=== PATIENT | male | born 1955 | race Caucasian/White ===

== ENCOUNTER 2021-02-04 13:27 | Outpatient (CLI) | payer MEDICAID | END 2021-02-04 13:28 | disposition critical access hospital (66) | LOC: EMS 13:27 | DX: M25.552 Pain in left hip (principal) | CPT/HCPCS: A0425; A0427; A0999 ==

== ENCOUNTER 2021-02-04 14:03 | Inpatient (IN) | payer MEDICAID ==
[2021-02-04] MEDS ORDERED: KETOROLAC 30 MG/ML VIAL IVP STA (14:50)
[2021-02-04] MEDS ORDERED: MORPHINE 2 MG/ML CARPUJECT IVP STA (14:50)
--- NOTE | 2021-02-04 15:38 | XRAY Report ---
PROCEDURE: Hip w/Pelvis 2-3V LT INDICATIONS: L hip pain, no fall TECHNIQUE: AP pelvis with lateral view(s) of the left hip(s). COMPARISON: None. FINDINGS: Bones: There is an acute appearing fracture involving left femoral neck with superior migration of fe moral shaft in relation to femoral head and overlapping at femoral neck fracture site. Moderate bilat eral hip joint osteoarthritic changes are seen. No evidence of avascular necrosis of femoral head. Pe lvic ring appears intact. No suspicious bony lesions. Soft tissues: The visualized bowel gas pattern is normal. No suspicious soft tissue calcifications. IMPRESSION: Acute displaced left femoral neck fracture as above. Reviewed by: Kade De Luna MD on 02/04/2021 3:36 PM PDT Approved by: Kade De Luna MD on 02/04/2021 3:36 PM PDT Station ID: [id number]
--- NOTE | 2021-02-04 15:53 | XRAY Report ---
PROCEDURE: Chest 1 View X-Ray INDICATIONS: pre-op TECHNIQUE: One view of the chest was acquired. COMPARISON: Lung bases on CT abdomen and pelvis 01/04/2015. FINDINGS: Surgical changes and devices: None. Lungs and pleura: No pleural effusions or pneumothorax. No consolidation seen. Prominent and diffuse pulmonary interstitial markings bilaterally. Mediastinum: Mediastinal contours appear normal. Heart size is within normal limits. Bones and chest wall: No suspicious bony lesions. Overlying soft tissues appear unremarkable. IMPRESSION: Diffuse increased interstitial markings. This could be due to fluid overload/CHF. Interstitial lung disease or infectious/inflammatory etiology could have a similar appearance. Reviewed by: Win Almaraz MD on 02/04/2021 2:51 PM DAVION Approved by: Win Almaraz MD on 02/04/2021 2:51 PM DAVION Station ID: [id number]
[2021-02-04 15:55] LABS: BASOPHILS % (AUTO) 0.1 %; HCT - HEMATOCRIT 42.2 % (42.0-52.0); LYMPHOCYTES # (AUTO) 0.9 10^3/uL (1.5-3.5); LYMPHOCYTES % (AUTO) 4.9 %; MEAN CORPUSCULAR HEMOGLOBIN 31.1 pg (27.0-31.0); MEAN CORPUSCULAR HGB CONC 33.2 g/dL (32.0-36.0); MEAN CORPUSCULAR VOLUME 93.8 fL (80.0-94.0); MEAN PLATELET VOLUME 9.5 fL (7.4-11.4); MONOCYTES # (AUTO) 1.2 10^3/uL (0.0-1.0); MONOCYTES % (AUTO) 6.2 %; NEUTROPHILS # (AUTO) 16.6 10^3/uL (1.5-6.6); NEUTROPHILS % (AUTO) 88.1 %; PLT - PLATELET COUNT 273 10^3/uL (130-450); RED CELL DISTRIBUTION WIDTH 15.9 % (12.0-15.0); WHITE BLOOD COUNT 18.8 x10^3/uL (4.8-10.8)
[2021-02-04 16:09] LABS: ALBUMIN 3.5 g/dL (3.2-5.5); ALBUMIN/GLOBULIN RATIO 0.8 (1.0-2.2); BILIRUBIN,TOTAL 0.5 mg/dL (0.2-1.0); CALCIUM 9.1 mg/dL (8.5-10.3); CREATININE 0.8 mg/dL (0.6-1.2); POTASSIUM 4.8 mmol/L (3.5-5.0); TOTAL PROTEIN 7.8 g/dL (6.7-8.2)
--- NOTE | 2021-02-04 16:13 | ED Physician Documentation ---
PD HPI LOWER EXT INJURY - Stated complaint Stated Complaint: HIP INJ - Chief complaint Chief Complaint: Ext Problem - History obtained from History obtained from: Patient - History of Present Illness PD HPI LOW EXT INJURY LOCATION: Left, Hip Type of injury: Twist Where injury occurred: Home Timing - onset: How many hours ago (1) Timing - duration: Hours (1) Timing - details: Abrupt onset Pain level max: 10 Pain level now: 10 Improved by: Rest, Ice, Immobilization Worsened by: Moving, Palpating Associated symptoms: No: Weakness, Numbness, Tingling, Swelling Recently seen: Not recently seen - Additional information Additional information: Patient is a 65-year-old male who presents to the emergency department stating he has had left hip pain for several weeks. Today he was lifting an air compressor when he turned and felt 3 pops in his left hip. Now unable to walk. Brought in by EMS. Worse with movement, better with rest. Review of Systems Ten Systems: 10 systems reviewed and negative Constitutional: denies: Fever, Chills Respiratory: denies: Cough GI: denies: Vomiting, Diarrhea Skin: denies: Rash Musculoskeletal: denies: Neck pain, Back pain Neurologic: denies: Headache, Head injury PD PAST MEDICAL HISTORY - Past Medical History Cardiovascular: None Respiratory: Pneumonia Neuro: None Endocrine/Autoimmune: None GI: GERD, Hepatitis, Cirrhosis : Other HEENT: None Psych: Depression Musculoskeletal: Chronic back pain Derm: None - Past Surgical History Past Surgical History: Yes General: Appendectomy Ortho: Knee replacement Cardiovascular: Other - Present Medications Home Medications: Ambulatory Orders Medication Instructions Recorded Confirmed Bupropion HCl [Wellbutrin] 11/19/13 11/19/13 Oxycodone HCl 11/19/13 11/19/13 - Allergies Allergies/Adverse Reactions: Allergies Allergy/AdvReac Type Severity Reaction Status Date / Time codeine Allergy Rash Verified 01/04/15 08:59 - Social History Does the pt smoke?: No Smoking Status: Former smoker Does the pt drink ETOH?: Yes Does the pt have substance abuse?: Yes Substance Use and Type: Marijuana - Immunizations Immunizations are current?: Yes - POLST Patient has POLST: No PD ED PE NORMAL - Vitals Vital signs reviewed: Yes - General General: Alert and oriented X 3 - HEENT HEENT: Moist mucous membranes - Neck Neck: Supple, no meningeal sign - Cardiac Cardiac: RRR - Respiratory Respiratory: No respiratory distress, Clear bilaterally - Abdomen Abdomen: Soft, Non tender, Non distended - Back Back: No spinal TTP - Derm Derm: Warm and dry - Extremities Extremities: Other (TTP over the L hip, limited ROM 2/2 pain, severe pain with any motion.) - Neuro Neuro: Alert and oriented X 3 - Psych Psych: Normal mood, Normal affect Results - Vitals Vitals: Vital Signs - 24 hr 02/04/21 02/04/21 14:31 15:58 Temperature 97.6 C H Heart Rate 104 H 95 Respiratory 18 Rate Blood Pressure 132/72 H 144/97 H O2 Saturation 92 96 Oxygen O2 Source Room air - EKG (time done) 1603 Rate: Rate (enter#) (92) Rhythm: NSR [place]: Normal Intervals: Normal [place] QRS: Normal Ischemia: Normal ST segments - Labs Labs: Laboratory Tests 02/04/21 02/04/21 02/04/21 15:46 15:46 15:46 WBC 18.8 H RBC 4.50 L Hgb 14.0 Hct 42.2 MCV 93.8 MCH 31.1 H MCHC 33.2 RDW 15.9 H Plt Count 273 MPV 9.5 Neut # (Auto) 16.6 H Lymph # (Auto) 0.9 L [place] # (Auto) 1.2 H Eos # (Auto) 0.0 Baso # (Auto) 0.0 Absolute Nucleated RBC 0.00 Nucleated RBC % 0.0 Sodium 140 Potassium 4.8 Chloride 107 Carbon Dioxide 25 Anion Gap 8.0 BUN 25 H Creatinine 0.8 Estimated GFR (MDRD) 98 Glucose 115 H Calcium 9.1 Total Bilirubin 0.5 AST 23 ALT 24 Alkaline Phosphatase 70 Total Protein 7.8 Albumin 3.5 Globulin 4.3 H Albumin/Globulin Ratio 0.8 L Lipase 20 L Nasal Adenovirus (PCR) Nasal B. parapertussis DNA (PCR) Nasal Coronavir 229E PCR Nasal Coronavir HKU1 PCR Nasal Coronavir NL63 PCR Nasal Coronavir OC43 PCR Nasal Enterovir/Rhinovir PCR Nasal Influenza B PCR Nasal Influenza A PCR Nasal Parainfluen 1 PCR Nasal Parainfluen 2 PCR Nasal Parainfluen 3 PCR Nasal Parainfluen 4 PCR Nasal RSV (PCR) Nasal B.pertussis DNA PCR Nasal C.pneumoniae (PCR) [place] Human Metapneumo PCR Nasal M.pneumoniae (PCR) Nasal SARS-CoV-2 (PCR) Blood Type B POSITIVE Antibody Screen NEGATIVE 02/04/21 16:20 WBC RBC Hgb Hct MCV MCH MCHC RDW Plt Count MPV Neut # (Auto) Lymph # (Auto) [place] # (Auto) Eos # (Auto) Baso # (Auto) Absolute Nucleated RBC Nucleated RBC % Sodium Potassium Chloride Carbon Dioxide Anion Gap BUN Creatinine Estimated GFR (MDRD) Glucose Calcium Total Bilirubin AST ALT Alkaline Phosphatase Total Protein Albumin Globulin Albumin/Globulin Ratio Lipase Nasal Adenovirus (PCR) NOT DETECTED Nasal B. parapertussis DNA (PCR) NOT DETECTED Nasal Coronavir 229E PCR NOT DETECTED Nasal Coronavir HKU1 PCR NOT DETECTED Nasal Coronavir NL63 PCR NOT DETECTED Nasal Coronavir OC43 PCR NOT DETECTED Nasal Enterovir/Rhinovir PCR NOT DETECTED Nasal Influenza B PCR NOT DETECTED Nasal Influenza A PCR NOT DETECTED Nasal Parainfluen 1 PCR NOT DETECTED Nasal Parainfluen 2 PCR NOT DETECTED Nasal Parainfluen 3 PCR NOT DETECTED Nasal Parainfluen 4 PCR NOT DETECTED Nasal RSV (PCR) NOT DETECTED Nasal B.pertussis DNA PCR NOT DETECTED Nasal C.pneumoniae (PCR) NOT DETECTED Juan Diego Human Metapneumo PCR NOT DETECTED Nasal M.pneumoniae (PCR) NOT DETECTED Nasal SARS-CoV-2 (PCR) NOT DETECTED Blood Type Antibody Screen - Rads (name of study) L hip xray Radiology: Final report received, EMP read contemporaneously, See rad report (Acute displaced left femoral neck fracture as above. ) cxr Radiology: Final report received, EMP read contemporaneously, See rad report PD MEDICAL DECISION MAKING - ED course Complexity details: reviewed results, re-evaluated patient, considered differential, d/w patient, d/w presales consultant ED course: 65-year-old male with a left femoral neck fracture. Pain well controlled. Neurovascularly intact. Discussed with Dr. Rogers, orthopedics who will have the hospitalist admit and plan on taken to the OR tomorrow. This document was made in part using voice recognition software. While efforts are made to proofread this document, sound alike and grammatical errors may occur. IMPRESSION: Diffuse increased interstitial markings. This could be due to fluid overload/CHF. Interstitial lung disease or infectious/inflammatory etiology could have a similar appearance. Departure - Departure Disposition: 68 [facility] DC/Xfer Clinical Impression: Hip fracture Qualifiers: Encounter type: initial encounter Fracture type: closed Laterality: left Qualified Code(s): S72.002A - Fracture of unspecified part of neck of left femur, initial encounter for closed fracture Condition: Stable Discharge Date/Time: 02/04/21 17:37
[2021-02-04] MEDS ORDERED: HYDROmorphone 1 MG/ML CARPUJECT IVP STA (16:15)
[2021-02-04] MEDS ORDERED: ONDANSETRON ODT 4 MG TABLET TL PRN (16:28)
[2021-02-04] MEDS ORDERED: ONDANSETRON 4 MG/2 ML VIAL IVP PRN (16:28)
[2021-02-04] MEDS ORDERED: SODIUM CHLORIDE 0.9% 1,000 ML IV SCH (17:00)
--- NOTE | 2021-02-04 17:11 | HISTORY & PHYSICAL EXAMINATION ---
Chief Complaint - Chief Complaint Chief Complaint: abrupt L hip pain History of Present Illness - Admitted From Admitted From:: work site - History Obtained From Records Reviewed: [facility] History obtained from: patient, Dr. Rogers, [facility] Exam Limitations: none - History of Present Illness HPI Comment/Other: 2 weeks ago he was seen at his walk-in clinic for left hip pain. X-ray was [place] piece of equipment/compressor. he had sudden onset of left hip pain. In the same area where he hurt 2 weeks ago. Pain was pretty abrupt and very severe. BIB EMS. In the emergency room he was 97.6. Heart rate of 104. Blood pressure 132/72. Respirations 18 and 92% on room air. As long as he kept his leg stable and he did not stand on it or move he felt fine. Other than not being able to move his leg, not much else was seen on physical exam. His white cell count is 18.8. Hemoglobin 14. BMP normal. And hip film shows a fracture of the left femur. He has a PMH of COPD and occasionally has short bursts of steroids for his exacerbation. The last time he had an exacerbation was yesterday. Over the last couple of days he has had increasing shortness of breath and wheezing. Not unusual for him. But he could not get the wheezing into control with his inhaler so he went to [facility] emergency room. He received nebulizers, a short burst of steroids, and he was sent home. Also has a history of alcohol abuse in the past. He drinks about 4-5 drinks of wine a day. Last drink was this morning. He does not recall ever going through full withdrawal. He may get a little shaky for a couple of hours but that is the worst he is ever had. He also uses methamphetamines. Last use was a few days ago. In speaking to his primary care provider, Dr. Means, he was last seen in April 2020. Medications at that time was Symbicort, ProAir, fluoxetine, bupropion and Viagra. But he tells me that he saw Dr. Means to get a skin lesion taken off his back in the last few months. He has chronic shortness of breath. That is the main thing that slows him down. No recent change in phlegm production. No hemoptysis, no fever or chills. Did have an exacerbation of wheezing yesterday as already noted. He denies chest pain, palpitations. Denies pedal edema. Orthopnea. He denies any history of heart attack, valvular heart disease or arrhythmia. Denies any problems with his kidneys. History - Past Medical History Cardiovascular: reports: None Respiratory: reports: COPD, Pneumonia Neuro: reports: None Endocrine/Autoimmune: reports: None GI: reports: GERD, Hepatitis, Cirrhosis : reports: Benign prostate hypertrophy HEENT: reports: Chronic vision loss, Chronic hearing loss Psych: reports: Depression, Anxiety Musculoskeletal: reports: Chronic back pain Derm: reports: Other (A mole removed from his back this last summer) MRSA Hx?: No Other Past Medical History: alcoholism - Past Surgical History General: reports: Appendectomy Ortho: reports: Knee replacement Cardiovascular: reports: Other - Family & Social History Family History Comment/Other: Dad around age 61 of alcohol abuse. Mom around age 80 and was felt to be healthy. 6 siblings. 1 sibling has a problem with alcohol abuse but the rest are healthy. He does not recall if they have high blood pressure, diabetes, cancer, heart attack. 2 children. His oldest son has schizophrenia and is in his 40s. His youngest son is 27 and completely healthy and is a vegan. Living arrangement: At home Living Situation: With spouse/s.o. Social History Notes: He has been 3 times. Originally from [place] and came out to the [facility] when he was having problems with alcoholism and methamphetamines. He became clean and sober. In the last few years he has been having some "struggles" and is gone back to drinking about 4 to 5 glasses of wine a day. Uses methamphetamine sporadically. Also uses occasional cannabis. Denies heroin, LSD, cocaine. 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 Last work was 2 weeks ago. He and his live in [place]. Started cigs age 12. 1 ppd until age 62. - Substance History Use: Uses substance without health or social issues: NONE - POLST Patient has POLST: No Meds/Allgy - Home Medications Home Medications: Ambulatory Orders Medication Instructions Recorded Confirmed Bupropion HCl [Wellbutrin] 11/19/13 11/19/13 Oxycodone HCl 11/19/13 11/19/13 - Allergies Allergies/Adverse Reactions: Allergies Allergy/AdvReac Type Severity Reaction Status Date / Time codeine Allergy Rash Verified 01/04/15 08:59 Review of Systems - Constitutional Constitutional: denies: Fatigue, Fever, Chills, Malaise, Poor appetite, Diaphoresis, Night sweats - Eyes Eyes: reports: Vision loss. denies: Amaurosis, Blurred vision - Ears, Nose & Throat Ears, Nose & Throat: reports: Hearing loss, Hoarseness. denies: Ear pain, Hearing aids, Tinnitus, Vertigo, Sore throat - Cardiovascular Cariovascular: reports: Exertional dyspnea, Decr. exercise tolerance. denies: Irregular heart rate, Palpitations, Chest pain, Edema - Respiratory Respiratory: reports: Cough (Daily and unchanged.), Sputum production (Daily of clear to white phlegm. Unchanged.), Wheezing (Off and on depending on weather and smoke inhalation) - Gastrointestinal Gastrointestinal: denies: Abdominal pain, Abdominal distention, Constipation, Diarrhea, Change in bowel habits, Rectal bleeding, Black stools, Bloody stools, Reflux/heartburn, Poor appetite - Genitourinary Genitourinary: reports: Frequency, Urgency, Nocturia (3x night), Sexual dysfunc tion, Other (decreased stream). denies: Dysuria - Musculoskeletal Musculoskeletal: reports: Back pain, Stiffness - Integumentary Integumentary: denies: Rash, Pruritis, Lesions, Dryness, Lumps - Neurological Neurological: denies: General weakness, Focal weakness, Headache, Dizziness, Memory problems, Pre-existing deficit, Abnormal gait, Seizures, Incoordination, Slurred speech - Psychiatric Psychiatric: reports: Depression, Anxiety. denies: Suicidal, Delusions, Hallucinations - Endocrine Endocrine: denies: Polyuria, Polydypsia, Polyphagia - Hematologic/Lymphatic Hematologic/Lymphatic: denies: Anemia, Bruising, Petechiae, Blood clots Prior Level of Functionality: Independent with regards to driving, dressing, doing chores, cooking and taking a bath. If he is limited he is limited by musculoskeletal back pain but he is still working full-time Exam - Vital Signs Reviewed Vital Signs: Yes Vital Signs: Vital Signs x48h Temp Pulse Resp BP Pulse Ox 02/04/21 15:58 95 144/97 H 96 02/04/21 14:31 97.6 C H 104 H 18 132/72 H 92 - Physical Exam General Appearance: positive: No acute distress, Alert, Other (The only time he screams in pain is when he is moved in the bed and his left hip moves. It is agonizing.) Eyes Bilateral: positive: PERRL, EOMI ENT: positive: No signs of dehydration, Other (Voice is hoarse) Neck: positive: No JVD, Lymphadenopathy (R) (Shotty), Lymphadenopathy (L) (Shotty). negative: Stiff neck, Carotid bruit Respiratory: positive: No respiratory distress, Rhonchi (Clear with a deep cough). negative: Wheezes (But he has prolonged and exhalation phase with breathing), Rales Cardiovascular: positive: Regular rate & rhythm. negative: Systolic murmur, Gallop/S4, Friction rub Abdomen: positive: Non-tender, No organomegaly, Nml bowel sounds, No distention Skin: positive: Warm, Dry Extremities: positive: No pedal edema, Other (Agonizing the painful if moved. Right now he prefers to lay on his back, hip flexed and knee flexed on that leg.) Neurologic/Psychiatric: positive: Oriented x3, CN's nml (2-12), Motor nml, Sensation nml Conclusion/Plan - Problem List (1) Left displaced femoral neck fracture Conclusion/Plan: My suspicion is that has aseptic necrosis of the hip. Intermittent steroid use in the past, alcohol abuse in the past. He may have developed a small crack that was felt 2 weeks ago but not seen on film. Today with a sudden heavy lifting, his hip gave way and spontaneous fracture occurred. There was no history of trauma or fall. Plan: Inpatient admission Orthopedic consultation for surgical repair N.p.o. after midnight Type and screen Morphine for pain DVT prophylaxis to start the evening of postop day 0 with Lovenox I anticipate that he may actually be able to go home she is a relatively active and healthy gentleman except for his lungs. We will assess him on postop day #3. If he does have to go to a detention facility, he would prefer to go to in [place] so that he can be near his . (2) Aseptic bony necrosis Conclusion/Plan: My partner. In the outpatient setting he may need a DEXA scan and treated appropriately for osteopenia/osteoporosis. (3) COPD without exacerbation Conclusion/Plan: Currently not in exacerbation. He has been on Symbicort and ProAir in the past. Currently not on his medication list. Plan: DuoNeb as needed (4) Depression with anxiety Conclusion/Plan: In the past he has been on fluoxetine and bupropion. Most recently on bupropion. That will be resumed while he is here. (5) Abnormal chest x-ray Conclusion/Plan: He denies any cough, fever, chills, myalgias. Does not have a history of congestive heart failure. Does not have a history of inhalation injury.He was just seen yesterday in the [facility] emergency room. Plan: Check PCR for COVID-19 Check echocardiogram For completeness sake. However the echocardiogram should not delay his surgery. (6) Preop cardiovascular exam Conclusion/Plan: He has no valvular heart disease, denies angina, HI, arrhythmia. His main problem with surgery will be the anesthetic and his COPD. With the surgical risk calculator he has a 9.5% risk of serious complication, 0.4% risk of cardiac complication. For the most part he is below average risk patient. (7) BPH loc w urin obs/LUTS Conclusion/Plan: Start Flomax tonight. Watch him carefully in the postoperative setting to make sure he does not have urinary retention once the Valadez is pulled. (8) Substance abuse Conclusion/Plan: Gentleman has intermittent substance abuse of alcohol and methamphetamines. Right now very minimally tremulous. No diaphoresis no tachycardia no hypertension. Plan: [facility] protocol Banana bag - Lab Results Lab results reviewed: Yes Fish Bones: 02/05/21 06:22 02/05/21 06:22 - Diagnostic Imaging Results Diagnostic Imaging Results: positive: Final report reviewed Diagnostic Imaging Results Comments: Acute displaced left femoral neck fracture Chest x-ray with diffuse increased interstitial markings. Unclear whether this is infectious or inflammatory or CHF. - EKG Results EKG Interpreted Independently: No Core Measures - Anticipated LOS I expect patient to be DC'd or transferred within 96 hours.: Yes - DVT/VTE - Prophylaxis VTE/DVT Device ordered at admit?: Yes
[2021-02-04 17:20] LABS: B. PARAPERTUSSIS- RESP PCR PAN NOT DETECTED; B. PERTUSSIS- RESP PCR PANEL NOT DETECTED; C. PNEUMONIAE- RESP PCR PANEL NOT DETECTED; CORONAVIRUS 229E-RESP PCR NOT DETECTED; CORONAVIRUS HKU1-RESP PCR NOT DETECTED; CORONAVIRUS NL63-RESP PCR NOT DETECTED; CORONAVIRUS OC43-RESP PCR NOT DETECTED; HUMAN METAPNEUMOVIRUS NOT DETECTED; INFLUENZA A- RESP PCR PANEL NOT DETECTED; INFLUENZA B - RESP PCR PANEL NOT DETECTED; M. PNEUMONIAE- RESP PCR PANEL NOT DETECTED; PARAINFLUENZA VIRUS 1 NOT DETECTED; PARAINFLUENZA VIRUS 2 NOT DETECTED; PARAINFLUENZA VIRUS 3 NOT DETECTED; PARAINFLUENZA VIRUS 4 NOT DETECTED; RHINOVIRUS/ENTEROVIRUS NOT DETECTED; RSV- RESP PCR PANEL NOT DETECTED; SARS-CoV-2 -RESP PCR PANEL NOT DETECTED
--- NOTE | 2021-02-04 17:20 | CONSULTATION NOTE ---
Referring Provider Name of Referring Provider:: Dr. Tunde Dejesus Consult Date: 02/04/21 History of Present Illness - Admitted From Admitted From:: Pain left hip - History Obtained From Records Reviewed: Yes History obtained from: Patient Exam Limitations: None - History of Present Illness HPI Comment/Other: This is a relatively healthy 65-year-old gentleman who has a history of pain to the left hip developing about 3 weeks ago. The pain was to the left hip and groin region and was associated with weightbearing. He was seen by his primary care physician, x-ray was obtained of the left hip. He states that he was reassured and states that he had some arthritis but not to worry. His pain has persisted with weightbearing, walking with a limp off and on. He used to live here on [facility], now resides in [place] 5 gallon air compressor and felt a pop. Marked pain to his left hip and marked difficulty bearing any weight, came to the emergency room, evaluated and I was asked to see the patient following evaluation by emergency room physician. He is normally a good ambulator. 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 He denies chest pain, shortness of breath, syncope associated with pain. He does have a history of chronic obstructive pulmonary disease. He quit smoking 3 years ago. He started a prednisone taper recently. He takes prednisone perhaps 3-4 times a year for his COPD. He does have a history of hepatitis C in the past, apparently treated and is now negative. He denies history of musculoskeletal issues in the past. He currently has rather marked pain in any attempted movement of the left hip is associated with pain. History - Past Medical History Cardiovascular: reports: None Respiratory: reports: Pneumonia Neuro: reports: None Endocrine/Autoimmune: reports: None GI: reports: GERD, Hepatitis, Cirrhosis : reports: Other HEENT: reports: None Psych: reports: Depression Musculoskeletal: reports: Chronic back pain Derm: reports: None MRSA Hx?: No - Past Surgical History General: reports: Appendectomy Ortho: reports: Knee replacement Cardiovascular: reports: Other - POLST Patient has POLST: No Meds/Allgy - Home Medications Home Medications: Ambulatory Orders Medication Instructions Recorded Confirmed Bupropion HCl [Wellbutrin] 11/19/13 11/19/13 Oxycodone HCl 11/19/13 11/19/13 - Allergies Allergies/Adverse Reactions: Allergies Allergy/AdvReac Type Severity Reaction Status Date / Time codeine Allergy Rash Verified 01/04/15 08:59 Exam - Vital Signs Vital Signs: Vital Signs x48h Temp Pulse Resp BP Pulse Ox 02/04/21 15:58 95 144/97 H 96 02/04/21 14:31 97.6 C H 104 H 18 132/72 H 92 - Physical Exam General Appearance: positive: Mild distress Neck: positive: Nml inspection Respiratory: positive: Chest non-tender, No respiratory distress Cardiovascular: positive: Regular rate & rhythm Peripheral Pulses: positive: 2+ Abdomen: positive: Non-tender Skin: positive: Color nml, Warm, Dry Extremities: negative: Other (Marked pain with any attempted movement of left hip. Patient holds hip in position of flexion. There is shortening and external rotation deformity. Neurovascular is intact left leg) Neurologic/Psychiatric: positive: Oriented x3, Motor nml, Sensation nml, Mood/affect nml Conclusion and Plan - Lab Results Laboratory Results 02/04/21 15:46: Sodium 140, Potassium 4.8, Chloride 107, Carbon Dioxide 25, Anion Gap 8.0, BUN 25 H, Creatinine 0.8, Estimated GFR (MDRD) 98, Glucose 115 H, Calcium 9.1, Total Bilirubin 0.5, AST 23, ALT 24, Alkaline Phosphatase 70, Total Protein 7.8, Albumin 3.5, Globulin 4.3 H, Albumin/Globulin Ratio 0.8 L, Lipase 20 L 02/04/21 15:46: WBC 18.8 H, RBC 4.50 L, Hgb 14.0, Hct 42.2, MCV 93.8, MCH 31.1 H, MCHC 33.2, RDW 15.9 H, Plt Count 273, MPV 9.5, Neut # (Auto) 16.6 H, Lymph # (Auto) 0.9 L, [place] # (Auto) 1.2 H, Eos # (Auto) 0.0, Baso # (Auto) 0.0, Absolute Nucleated RBC 0.00, Nucleated RBC % 0.0 02/04/21 15:46: Blood Type B POSITIVE, Antibody Screen NEGATIVE - Diagnostic Imaging Results Diagnostic Imaging Results: negative: Read independently (Displaced femoral neck fracture left hip) - Diagnosis Diagnosis: Displaced femoral neck fracture left hip - Plan Plan: I have discussed the risk, goals and likelihood achieving goals, alternatives to surgery and their consequences, disability, ,. The plan would be a left total hip arthroplasty as he is relatively high functioning individual and not the typical geriatric fracture. There are slightly more risk with the total hip arthroplasty than hemiarthroplasty but I think the risks are worth the potential improvement in outcome with a left total hip arthroplasty. The specific risks includes problem with wound healing, bleeding, infection, neurologic or vascular injury, periprosthetic fracture and hip dislocation. General risks include adverse reaction with medication or anesthesia, myocardial infarction, stroke, pulmonary embolus, respiratory arrest. He is in agreement to surgery which would most likely occur tomorrow. He will be evaluated by our hospitalist, Dr. Terry. Patient has signed informed consent.
[2021-02-04] MEDS: SODIUM CHLORIDE FLUSH 0.9% 10 ML SYRINGE IVP SCH (18:28)
[2021-02-04] MEDS: MORPHINE 2 MG/ML CARPUJECT IVP PRN ×3 (18:37→22:55)
[2021-02-04] MEDS ORDERED: LORazepam 1 MG TABLET PO PRN (18:50)
[2021-02-04 19:48] LABS: PT - PROTHROMBIN TIME 11.3 secs (9.9-12.6)
[2021-02-04] MEDS ORDERED: THIAMINE 100 MG/1 ML 2 ML MDV ONE (20:25)
[2021-02-04] MEDS ORDERED: MAGNESIUM SULFATE 1 GM/2 ML VIAL ONE ×2 (20:25→20:40)
[2021-02-04] MEDS ORDERED: FOLIC ACID 5 MG/1 ML 10ML MDV ONE (20:40)
[2021-02-04] MEDS: MULTIVITAMIN 10 ML, FOLIC ACID INJ 1 MG, THIAMINE INJ 100 MG, MAGNESIUM SULFATE 2 GM in... IV SCH ×5 (21:10)
[2021-02-04 21:49] LABS: MUDS CUTOFF CONCENTRATIONS CUTOFF CONC BELOW:
[2021-02-04] MEDS: oxyCODONE 5 MG TABLET PO PRN (21:49)
[2021-02-04 22:06] LABS: COCAINE SCREEN URINE NEGATIVE (NEGATIVE); THC CANNABINOID SCREEN, URINE POSITIVE (NEGATIVE)
[2021-02-04 22:07] LABS: AMPHETAMINE SCREEN,URINE POSITIVE (NEGATIVE); BARBITURATE SCREEN,UR NEGATIVE (NEGATIVE); BENZODIAZEPINES SCREEN, URINE NEGATIVE (NEGATIVE); METHADONE SCREEN, URINE NEGATIVE (NEGATIVE); METHAMPHETAMINES SCREEN, URINE POSITIVE (NEGATIVE); OPIATE SCREEN, URINE POSITIVE (NEGATIVE); OXYCODONE SCREEN, URINE NEGATIVE (NEGATIVE); PROPOXYPHENE SCREEN, URINE NEGATIVE (NEGATIVE); TRICYCLIC ANTIDEPRESSANT,URINE NEGATIVE (NEGATIVE)
[2021-02-05] MEDS: MORPHINE 2 MG/ML CARPUJECT IVP PRN ×4 (01:20→11:24)
[2021-02-05] MEDS: SODIUM CHLORIDE FLUSH 0.9% 10 ML SYRINGE IVP PRN ×2 (01:29→05:40)
[2021-02-05] MEDS: SODIUM CHLORIDE FLUSH 0.9% 10 ML SYRINGE IVP SCH ×4 (01:29→17:50)
[2021-02-05] MEDS: oxyCODONE 5 MG TABLET PO PRN ×2 (01:36→05:56)
[2021-02-05 06:29] LABS: BASOPHILS % (AUTO) 0.2 %; EOSINOPHILS % (AUTO) 0.1 %; HCT - HEMATOCRIT 44.7 % (42.0-52.0); HGB - HEMOGLOBIN 14.4 g/dL (14.0-18.0); LYMPHOCYTES # (AUTO) 2.3 10^3/uL (1.5-3.5); LYMPHOCYTES % (AUTO) 17.5 %; MEAN CORPUSCULAR HEMOGLOBIN 31.2 pg (27.0-31.0); MEAN CORPUSCULAR HGB CONC 32.2 g/dL (32.0-36.0); MEAN PLATELET VOLUME 9.9 fL (7.4-11.4); MONOCYTES % (AUTO) 7.4 %; NEUTROPHILS # (AUTO) 9.7 10^3/uL (1.5-6.6); NEUTROPHILS % (AUTO) 74.2 %; PLT - PLATELET COUNT 229 10^3/uL (130-450); RED BLOOD COUNT 4.61 10^6/uL (4.70-6.10); WHITE BLOOD COUNT 13.1 x10^3/uL (4.8-10.8)
[2021-02-05 06:43] LABS: CALCIUM 8.6 mg/dL (8.5-10.3); CREATININE 0.7 mg/dL (0.6-1.2); POTASSIUM 4.2 mmol/L (3.5-5.0)
[2021-02-05] MEDS ORDERED: diazePAM INJ 5 MG/ML SYRINGE IVP ONE (07:23)
--- NOTE | 2021-02-05 07:29 | PROVIDER PROGRESS NOTE ---
Subjective - Prog Note Date Prog Note Date: 02/05/21 Prog Note Time: 07:27 - Subjective Subjective: terrbiel leg pain this am. was controlled w MS last night but this am, involuntary spasm. no new problems. Cough and sob stable for him. Shrugs and says they are the same as always. Current Medications - Current Medications Current Medications: Active Medications Enoxaparin Sodium (Enoxaparin 40 Mg/0.4 Ml Syringe) 40 mg SUBQ DAILY [facility] Multivitamins 10 ml/ Folic Acid 1 mg/ Thiamine HCl 100 mg / Magnesium Sulfate 2 gm/Sodium Chloride 1,015.2 mls @ 100 mls/hr IV DAILY [facility] Last Admin: 02/04/21 21:10 Dose: 100 mls/hr Documented by: Lorazepam (Lorazepam 1 Mg Tablet) 1 mg PO Q1H PRN; Protocol PRN Reason: CIWA > 8 Last Admin: 02/05/21 06:36 Dose: 1 mg Documented by: Morphine Sulfate (Morphine 2 Mg/Ml Carpuject) 2 mg IVP Q2HR PRN PRN Reason: Pain 8 to 10 Last Admin: 02/05/21 05:40 Dose: 2 mg Documented by: Ondansetron HCl (Ondansetron Odt 4 Mg Tablet) 4 mg TL Q6HR PRN PRN Reason: Nausea / Vomiting Ondansetron HCl (Ondansetron 4 Mg/2 Ml Vial) 4 mg IVP Q6HR PRN PRN Reason: Nausea / Vomiting Oxycodone HCl (Oxycodone 5 Mg Tablet) 5 mg PO Q4HR PRN PRN Reason: Pain 5 to 7 Last Admin: 02/05/21 05:56 Dose: 5 mg Documented by: Sodium Chloride (Sodium Chloride Flush 0.9% 10 Ml Syringe) 10 ml IVP PRN PRN PRN Reason: NEEDED PER PROVIDER ORDERS Last Admin: 02/05/21 05:40 Dose: 10 ml Documented by: Sodium Chloride (Sodium Chloride Flush 0.9% 10 Ml Syringe) 10 ml IVP 0100,0900,1700 [facility] Last Admin: 02/05/21 01:29 Dose: 10 ml Documented by: Tamsulosin HCl (Tamsulosin 0.4 Mg Capsule) 0.4 mg PO DAILY [facility] Bupropion HCl [Wellbutrin] 06/30/14 Oxycodone HCl 11/19/13 Objective - Vital Signs/Intake & Output Reviewed Vital Signs: Yes Vital Signs: Vital Signs x48h Temp Pulse Resp BP Pulse Ox 02/05/21 00:46 36.5 C 89 18 148/92 H 94 Intake & Output: Intake & Output 02/02/21 02/03/21 02/04/21 02/05/21 23:59 23:59 23:59 23:59 Intake Total 370 Output Total 300 Balance 370 -300 - Objective General Appearance: positive: Alert, Severe distress (from the leg pain) Eyes Bilateral: positive: PERRL ENT: positive: No signs of dehydration Neck: positive: No JVD. negative: Stiff neck Respiratory: positive: No respiratory distress, Other (coughs once and nonproductive). negative: Wheezes (but does have prolonged end exhalation.) Cardiovascular: positive: Regular rate & rhythm, Systolic murmur. negative: Gallop/S4, Friction rub Abdomen: positive: Non-tender, No organomegaly, Nml bowel sounds, No distention Skin: positive: Warm, Dry Extremities: positive: No pedal edema. negative: Full ROM (of that left leg. can't move it without terrible pain in the hip and thigh) Neurologic/Psychiatric: positive: Oriented x3, CN's nml (2-12), Motor nml (fine tremor of hands) - Lab Results Fish Bones: 02/05/21 06:22 02/05/21 06:22 Other Labs: Lab Results x24hrs 02/05/21 02/05/21 02/04/21 Range/Units 06:22 06:22 21:47 WBC 13.1 H (4.8-10.8) x10^3/uL RBC 4.61 L (4.70-6.10) 10^6/uL Hgb 14.4 (14.0-18.0) g/dL Hct 44.7 (42.0-52.0) % MCV 97.0 H (80.0-94.0) fL MCH 31.2 H (27.0-31.0) pg MCHC 32.2 (32.0-36.0) g/dL RDW 16.0 H (12.0-15.0) % Plt Count 229 (130-450) 10^3/uL MPV 9.9 (7.4-11.4) fL Neut # (Auto) 9.7 H (1.5-6.6) 10^3/uL Lymph # (Auto) 2.3 (1.5-3.5) 10^3/uL [place] # (Auto) 1.0 (0.0-1.0) 10^3/uL Eos # (Auto) 0.0 (0.0-0.7) 10^3/uL Baso # (Auto) 0.0 (0.0-0.1) 10^3/uL Absolute Nucleated RBC 0.00 x10^3/uL Nucleated RBC % 0.0 /100WBC PT (9.9-12.6) secs INR (0.8-1.2) Sodium 138 (135-145) mmol/L Potassium 4.2 (3.5-5.0) mmol/L Chloride 104 (101-111) mmol/L Carbon Dioxide 26 (21-32) mmol/L Anion Gap 8.0 (6-13) BUN 25 H (6-20) mg/dL Creatinine 0.7 (0.6-1.2) mg/dL Estimated GFR (MDRD) 114 (>89) Glucose 88 (70-100) mg/dL Calcium 8.6 (8.5-10.3) mg/dL Total Bilirubin (0.2-1.0) mg/dL AST (10-42) IU/L ALT (10-60) IU/L Alkaline Phosphatase (42-121) IU/L Total Protein (6.7-8.2) g/dL Albumin (3.2-5.5) g/dL Globulin (2.1-4.2) g/dL Albumin/Globulin Ratio (1.0-2.2) Lipase (22-51) U/L Nasal Adenovirus (PCR) Nasal B. parapertussis DNA (PCR) Nasal Coronavir 229E PCR Nasal Coronavir HKU1 PCR Nasal Coronavir NL63 PCR Nasal Coronavir OC43 PCR Nasal Enterovir/Rhinovir PCR Nasal Influenza B PCR Nasal Influenza A PCR Nasal Parainfluen 1 PCR Nasal Parainfluen 2 PCR Nasal Parainfluen 3 PCR Nasal Parainfluen 4 PCR Nasal RSV (PCR) Nasal B.pertussis DNA PCR Nasal C.pneumoniae (PCR) [place] Human Metapneumo PCR Nasal M.pneumoniae (PCR) Nasal SARS-CoV-2 (PCR) Urine Opiates Screen POSITIVE H (NEGATIVE) Ur Oxycodone Screen NEGATIVE (NEGATIVE) Urine Methadone Screen NEGATIVE (NEGATIVE) Ur Propoxyphene Screen NEGATIVE (NEGATIVE) Ur Barbiturates Screen NEGATIVE (NEGATIVE) Ur Tricyclics Screen NEGATIVE (NEGATIVE) Ur Phencyclidine Scrn NEGATIVE (NEGATIVE) Ur Amphetamine Screen POSITIVE H (NEGATIVE) U Methamphetamines Scrn POSITIVE H (NEGATIVE) U Benzodiazepines Scrn NEGATIVE (NEGATIVE) Urine Cocaine Screen NEGATIVE (NEGATIVE) U Cannabinoids Screen POSITIVE H (NEGATIVE) Blood Type Antibody Screen 02/04/21 02/04/21 02/04/21 Range/Units 19:35 16:20 15:46 WBC (4.8-10.8) x10^3/uL RBC (4.70-6.10) 10^6/uL Hgb (14.0-18.0) g/dL Hct (42.0-52.0) % MCV (80.0-94.0) fL MCH (27.0-31.0) pg MCHC (32.0-36.0) g/dL RDW (12.0-15.0) % Plt Count (130-450) 10^3/uL MPV (7.4-11.4) fL Neut # (Auto) (1.5-6.6) 10^3/uL Lymph # (Auto) (1.5-3.5) 10^3/uL [place] # (Auto) (0.0-1.0) 10^3/uL Eos # (Auto) (0.0-0.7) 10^3/uL Baso # (Auto) (0.0-0.1) 10^3/uL Absolute Nucleated RBC x10^3/uL Nucleated RBC % /100WBC PT 11.3 (9.9-12.6) secs INR 1.0 (0.8-1.2) Sodium 140 (135-145) mmol/L Potassium 4.8 (3.5-5.0) mmol/L Chloride 107 (101-111) mmol/L Carbon Dioxide 25 (21-32) mmol/L Anion Gap 8.0 (6-13) BUN 25 H (6-20) mg/dL Creatinine 0.8 (0.6-1.2) mg/dL Estimated GFR (MDRD) 98 (>89) Glucose 115 H (70-100) mg/dL Calcium 9.1 (8.5-10.3) mg/dL Total Bilirubin 0.5 (0.2-1.0) mg/dL AST 23 (10-42) IU/L ALT 24 (10-60) IU/L Alkaline Phosphatase 70 (42-121) IU/L Total Protein 7.8 (6.7-8.2) g/dL Albumin 3.5 (3.2-5.5) g/dL Globulin 4.3 H (2.1-4.2) g/dL Albumin/Globulin Ratio 0.8 L (1.0-2.2) Lipase 20 L (22-51) U/L Nasal Adenovirus (PCR) NOT DETECTED Nasal B. parapertussis DNA (PCR) NOT DETECTED Nasal Coronavir 229E PCR NOT DETECTED Nasal Coronavir HKU1 PCR NOT DETECTED Nasal Coronavir NL63 PCR NOT DETECTED Nasal Coronavir OC43 PCR NOT DETECTED Nasal Enterovir/Rhinovir PCR NOT DETECTED Nasal Influenza B PCR NOT DETECTED Nasal Influenza A PCR NOT DETECTED Nasal Parainfluen 1 PCR NOT DETECTED Nasal Parainfluen 2 PCR NOT DETECTED Nasal Parainfluen 3 PCR NOT DETECTED Nasal Parainfluen 4 PCR NOT DETECTED Nasal RSV (PCR) NOT DETECTED Nasal B.pertussis DNA PCR NOT DETECTED Nasal C.pneumoniae (PCR) NOT DETECTED [place] Human Metapneumo PCR NOT DETECTED Nasal M.pneumoniae (PCR) NOT DETECTED Nasal SARS-CoV-2 (PCR) NOT DETECTED Urine Opiates Screen (NEGATIVE) Ur Oxycodone Screen (NEGATIVE) Urine Methadone Screen (NEGATIVE) Ur Propoxyphene Screen (NEGATIVE) Ur Barbiturates Screen (NEGATIVE) Ur Tricyclics Screen (NEGATIVE) Ur Phencyclidine Scrn (NEGATIVE) Ur Amphetamine Screen (NEGATIVE) U Methamphetamines Scrn (NEGATIVE) U Benzodiazepines Scrn (NEGATIVE) Urine Cocaine Screen (NEGATIVE) U Cannabinoids Screen (NEGATIVE) Blood Type Antibody Screen 02/04/21 02/04/21 Range/Units 15:46 15:46 WBC 18.8 H (4.8-10.8) x10^3/uL RBC 4.50 L (4.70-6.10) 10^6/uL Hgb 14.0 (14.0-18.0) g/dL Hct 42.2 (42.0-52.0) % MCV 93.8 (80.0-94.0) fL MCH 31.1 H (27.0-31.0) pg MCHC 33.2 (32.0-36.0) g/dL RDW 15.9 H (12.0-15.0) % Plt Count 273 (130-450) 10^3/uL MPV 9.5 (7.4-11.4) fL Neut # (Auto) 16.6 H (1.5-6.6) 10^3/uL Lymph # (Auto) 0.9 L (1.5-3.5) 10^3/uL [place] # (Auto) 1.2 H (0.0-1.0) 10^3/uL Eos # (Auto) 0.0 (0.0-0.7) 10^3/uL Baso # (Auto) 0.0 (0.0-0.1) 10^3/uL Absolute Nucleated RBC 0.00 x10^3/uL Nucleated RBC % 0.0 /100WBC PT (9.9-12.6) secs INR (0.8-1.2) Sodium (135-145) mmol/L Potassium (3.5-5.0) mmol/L Chloride (101-111) mmol/L Carbon Dioxide (21-32) mmol/L Anion Gap (6-13) BUN (6-20) mg/dL Creatinine (0.6-1.2) mg/dL Estimated GFR (MDRD) (>89) Glucose (70-100) mg/dL Calcium (8.5-10.3) mg/dL Total Bilirubin (0.2-1.0) mg/dL AST (10-42) IU/L ALT (10-60) IU/L Alkaline Phosphatase (42-121) IU/L Total Protein (6.7-8.2) g/dL Albumin (3.2-5.5) g/dL Globulin (2.1-4.2) g/dL Albumin/Globulin Ratio (1.0-2.2) Lipase (22-51) U/L Nasal Adenovirus (PCR) Nasal B. parapertussis DNA (PCR) Nasal Coronavir 229E PCR Nasal Coronavir HKU1 PCR Nasal Coronavir NL63 PCR Nasal Coronavir OC43 PCR Nasal Enterovir/Rhinovir PCR Nasal Influenza B PCR Nasal Influenza A PCR Nasal Parainfluen 1 PCR Nasal Parainfluen 2 PCR Nasal Parainfluen 3 PCR Nasal Parainfluen 4 PCR Nasal RSV (PCR) Nasal B.pertussis DNA PCR Nasal C.pneumoniae (PCR) [place] Human Metapneumo PCR Nasal M.pneumoniae (PCR) Nasal SARS-CoV-2 (PCR) Urine Opiates Screen (NEGATIVE) Ur Oxycodone Screen (NEGATIVE) Urine Methadone Screen (NEGATIVE) Ur Propoxyphene Screen (NEGATIVE) Ur Barbiturates Screen (NEGATIVE) Ur Tricyclics Screen (NEGATIVE) Ur Phencyclidine Scrn (NEGATIVE) Ur Amphetamine Screen (NEGATIVE) U Methamphetamines Scrn (NEGATIVE) U Benzodiazepines Scrn (NEGATIVE) Urine Cocaine Screen (NEGATIVE) U Cannabinoids Screen (NEGATIVE) Blood Type B POSITIVE Antibody Screen NEGATIVE Assessment/Plan - Problem List (1) Left displaced femoral neck fracture Impression: My suspicion was that he has aseptic necrosis of the hip. Ortho demures and feels that the femoral head would have broken off and that lower likelihood of aseptic necrosis. Intermittent steroid use in the past, alcohol abuse in the past. He may have developed a small crack that was felt 2 weeks ago but not seen on film. 02/04, with a sudden heavy lifting, his hip gave way and spontaneous fracture occurred. There was no history of trauma or fall. Plan: To OR today On MS for pain. Add Valium IVP one dose this am per RN request. She feels his involuntary muscle spasm is the cause of his pain and he has breakthru the MS or oxycodone. He did receive Ativan for tremulousness earlier. DVT prophylaxis to start after surgery in postop day 0 with Lovenox I anticipate that he may actually be able to go home since he is a relatively active and healthy gentleman except for his lungs. We will assess him on postop day #3. If he does have to go to a [facility] facility, he would prefer to go to in [place] so that he can be near his . (2) Possible osteopenia Conclusion/Plan: In the outpatient setting he may need a DEXA scan and treated appropriately for osteopenia/osteoporosis. (3) COPD without exacerbation Conclusion/Plan: Currently not in exacerbation. He has been on Symbicort and ProAir in the past. Currently not on his medication list. Plan: DuoNeb as needed (4) Depression with anxiety Conclusion/Plan: In the past he has been on fluoxetine and bupropion. Most recently on bupropion. That will be resumed while he is here. (5) Abnormal chest x-ray Conclusion/Plan: He denies any cough, fever, chills, myalgias. Does not have a history of congestive heart failure. Does not have a history of inhalation injury. He was just seen yesterday in the [place] emergency room. We checked PCR for COVID- 19 and he is negative. Plan: Check echocardiogram For completeness sake. However the echocardiogram should not delay his surgery. (6) Preop cardiovascular exam from yesterday Conclusion/Plan: He has no valvular heart disease, denies angina, NC, arrhythmia. His main problem with surgery will be the anesthetic and his COPD. With the surgical risk calculator he has a 9.5% risk of serious complication, 0.4% risk of cardiac complication. For the most part he is below average risk patient. However his substance abuse and possible withdrawal in the postop setting would change that. (7) BPH loc w urin obs/LUTS Conclusion/Plan: Started on Flomax the night of admission. Watch him carefully in the postoperative setting to make sure he does not have urinary retention once the Valadez is pulled. (8) Substance abuse Conclusion/Plan: Gentleman has intermittent substance abuse of alcohol and methamphetamines. On admission was very minimally tremulous. No diaphoresis no tachycardia no hypertension. Plan: [facility] protocol Banana bag
[2021-02-05] MEDS: IPRATROPIUM/ALBUTEROL 3 ML NEB INH PRN (08:37)
[2021-02-05] MEDS: MULTIVITAMIN 10 ML, FOLIC ACID INJ 1 MG, THIAMINE INJ 100 MG, MAGNESIUM SULFATE 2 GM in... IV SCH ×5 (09:01)
[2021-02-05] MEDS: TAMSULOSIN 0.4 MG CAPSULE PO SCH (09:01)
--- NOTE | 2021-02-05 09:18 | ANESTHESIA ---
Pre-Anesthesia VS, & Labs - Diagnosis Diagnosis Displaced femoral neck fracture left hip - Procedure left total arthroplasty Vital Signs: Temp Pulse Resp BP Pulse Ox 36.5 C 90 14 151/95 H 93 02/05/21 07:35 02/05/21 08:37 02/05/21 08:37 02/05/21 07:35 02/05/21 07:35 Height: 5 ft 10 in Weight (kg): 86.183 kg Body Mass Index: 27.2 BMI Classification: Overweight - NPO >8 hours - Lab Results Current Lab Results: Laboratory Tests 02/05/21 06:22: Sodium 138, Potassium 4.2, Chloride 104, Carbon Dioxide 26, Anion Gap 8.0, BUN 25 H, Creatinine 0.7, Estimated GFR (MDRD) 114, Glucose 88, Calcium 8.6 02/05/21 06:22: WBC 13.1 H, RBC 4.61 L, Hgb 14.4, Hct 44.7, MCV 97.0 H, MCH 31.2 H, MCHC 32.2, RDW 16.0 H, Plt Count 229, MPV 9.9, Neut # (Auto) 9.7 H, Lymph # (Auto) 2.3, [place] # (Auto) 1.0, Eos # (Auto) 0.0, Baso # (Auto) 0.0, Absolute Nucleated RBC 0.00, Nucleated RBC % 0.0 02/04/21 21:47: Urine Opiates Screen POSITIVE H, Ur Oxycodone Screen NEGATIVE, Urine Methadone Screen NEGATIVE, Ur Propoxyphene Screen NEGATIVE, Ur Barbiturates Screen NEGATIVE, Ur Tricyclics Screen NEGATIVE, Ur Phencyclidine Scrn NEGATIVE, Ur Amphetamine Screen POSITIVE H, U Methamphetamines Scrn POSITIVE H, U Benzodiazepines Scrn NEGATIVE, Urine Cocaine Screen NEGATIVE, U Cannabinoids Screen POSITIVE H 02/04/21 19:35: PT 11.3, INR 1.0 02/04/21 15:46: Sodium 140, Potassium 4.8, Chloride 107, Carbon Dioxide 25, Anion Gap 8.0, BUN 25 H, Creatinine 0.8, Estimated GFR (MDRD) 98, Glucose 115 H, Calcium 9.1, Total Bilirubin 0.5, AST 23, ALT 24, Alkaline Phosphatase 70, Total Protein 7.8, Albumin 3.5, Globulin 4.3 H, Albumin/Globulin Ratio 0.8 L, Lipase 20 L 02/04/21 15:46: WBC 18.8 H, RBC 4.50 L, Hgb 14.0, Hct 42.2, MCV 93.8, MCH 31.1 H , MCHC 33.2, RDW 15.9 H, Plt Count 273, MPV 9.5, Neut # (Auto) 16.6 H, Lymph # (Auto) 0.9 L, [place] # (Auto) 1.2 H, Eos # (Auto) 0.0, Baso # (Auto) 0.0, Absolute Nucleated RBC 0.00, Nucleated RBC % 0.0 02/04/21 15:46: Blood Type B POSITIVE, Antibody Screen NEGATIVE 02/04/21 06:22: Blood Type Recheck B POSITIVE Fish Bones: 02/05/21 06:22 02/05/21 06:22 Home Medications and Allergies Active Medications Albuterol/Ipratropium (Ipratropium/Albuterol 3 Ml Neb) 3 ml INH Q4HR PRN PRN Reason: Wheezing Last Admin: 02/05/21 08:37 Dose: 3 ml Documented by: Alcohol (Ethyl Alcohol 62% Swab Ampule) 1 amp REY BID JANELLE Enoxaparin Sodium (Enoxaparin 40 Mg/0.4 Ml Syringe) 40 mg SUBQ DAILY [facility] Multivitamins 10 ml/ Folic Acid 1 mg/ Thiamine HCl 100 mg / Magnesium Sulfate 2 gm/Sodium Chloride 1,015.2 mls @ 100 mls/hr IV DAILY JANELLE Last Admin: 02/05/21 09:01 Dose: 100 mls/hr Documented by: Lorazepam (Lorazepam 1 Mg Tablet) 1 mg PO Q1H PRN; Protocol PRN Reason: CIWA > 8 Last Admin: 02/05/21 06:36 Dose: 1 mg Documented by: Morphine Sulfate (Morphine 2 Mg/Ml Carpuject) 2 mg IVP Q2HR PRN PRN Reason: Pain 8 to 10 Last Admin: 02/05/21 05:40 Dose: 2 mg Documented by: Ondansetron HCl (Ondansetron Odt 4 Mg Tablet) 4 mg TL Q6HR PRN PRN Reason: Nausea / Vomiting Ondansetron HCl (Ondansetron 4 Mg/2 Ml Vial) 4 mg IVP Q6HR PRN PRN Reason: Nausea / Vomiting Oxycodone HCl (Oxycodone 5 Mg Tablet) 5 mg PO Q4HR PRN PRN Reason: Pain 5 to 7 Last Admin: 02/05/21 05:56 Dose: 5 mg Documented by: Sodium Chloride (Sodium Chloride Flush 0.9% 10 Ml Syringe) 10 ml IVP PRN PRN PRN Reason: NEEDED PER PROVIDER ORDERS Last Admin: 02/05/21 05:40 Dose: 10 ml Documented by: Sodium Chloride (Sodium Chloride Flush 0.9% 10 Ml Syringe) 10 ml IVP 0100,0900,1700 [facility] Last Admin: 02/05/21 07:58 Dose: 10 ml Documented by: Tamsulosin HCl (Tamsulosin 0.4 Mg Capsule) 0.4 mg PO DAILY [facility] Last Admin: 02/05/21 09:01 Dose: 0.4 mg Documented by: Bupropion HCl [Wellbutrin] 11/19/13 Oxycodone HCl 11/19/13 Allergies/Adverse Reactions: Allergies Allergy/AdvReac Type Severity Reaction Status Date / Time codeine Allergy Rash Verified 01/04/15 08:59 Anes History & Medical History - Anesthetic History Anesthesia Complications: reports: No previous complications - Medical History Cardiovascular: reports: None Pulmonary: reports: COPD, Pneumonia Gastrointestinal: reports: GERD, Hepatitis, Cirrhosis Urinary: reports: Benign prostate hypertrophy Neuro: reports: None Musculoskeletal: reports: Chronic back pain Endocrine/Autoimmune: reports: None Blood Disorders: reports: None Skin: reports: Other (A mole removed from his back this last summer) Smoking Status: Former smoker Psychosocial: reports: Alcohol, Amphetamine, Cannabis, Opioid Other Past Medical History: alcoholism - Surgical History General: reports: Appendectomy Cardiothoracic: reports: Other Orthopedic: reports: Knee replacement Exam General: Alert Dental: Dentures full Upper Mouth Opening: Greater than 4 Fingerbreadths Neck Mobility: Normal Mallampati classification: II Thyromental Distance: greater than 6 cm Respiratory: Decreased breath sounds, Rhonchi Cardiovascular: Regular rate Plan Anesthesia Type: Spinal, Fascia Iliaca Block Consent for Procedure(s) Verified and Reviewed: Yes Code Status: Attempt Resuscitation ASA classification: 3-Severe systemic disease Is this case an emergency?: No
[2021-02-05] MEDS ORDERED: HYDROmorphone 0.5 MG/0.5 ML SYRINGE IVP PRN (09:21)
[2021-02-05] MEDS ORDERED: ePHEDrine 50 MG/ML VIAL IVP PRN (09:21)
[2021-02-05] MEDS ORDERED: ATROPINE ABBOJECT 1 MG/10 ML SYRINGE IVP PRN (09:21)
[2021-02-05] MEDS ORDERED: ONDANSETRON 4 MG/2 ML VIAL IVP PRN ×2 (09:21→16:13)
[2021-02-05] MEDS ORDERED: fentaNYL 100 MCG/2 ML VIAL IVP PRN (09:21)
[2021-02-05] MEDS ORDERED: NALOXONE 0.4 MG/ML VIAL IVP PRN (09:21)
[2021-02-05] MEDS ORDERED: MORPHINE 2 MG/ML CARPUJECT IVP PRN (09:21)
[2021-02-05] MEDS: ethyl alcohoL 62% SWAB AMPULE NAS SCH ×2 (09:32→21:41)
[2021-02-05] MEDS ORDERED: LACTATED RINGERS 1,000 ML IV SCH (10:00)
--- NOTE | 2021-02-05 12:45 | PHARMACY PROGRESS NOTE ---
- Best Possible Medication History Admit Date and Time: 02/04/21 1628 Processed by: Pharmacy Medication History completed: Yes Patient Interview: Completed (PATIENT ABLE TO ONFIRM HOME MEDICATIONS) As the person ultimately responsible for medication therapy, providers are able to order a medication from an existing home medication list in [facility] via the "Reconcile Routine" prior to Confirmation of that medication by product support specialist. Such practice is discouraged except when the physician, in their clinical judgment, deems that a medical need exists for a medication without regard to previous use.
[2021-02-05] MEDS ORDERED: MIDAZOLAM 2 MG/2 ML VIAL ONE (13:05)
[2021-02-05] MEDS ORDERED: KETAMINE 500 MG/10 ML VIAL ONE (13:05)
[2021-02-05] MEDS ORDERED: fentaNYL 100 MCG/2 ML VIAL ONE (13:05)
[2021-02-05] MEDS ORDERED: PROPOFOL 500 MG/50 ML 500 MG/50 ML VIAL ONE ×2 (13:06→14:41)
[2021-02-05] MEDS ORDERED: ALBUTEROL NEB 2.5 MG/3 ML INH ONE (13:24)
[2021-02-05] MEDS ORDERED: ACETAMINOPHEN 1,000 MG/100 ML 100 ML IV ONE (13:42)
[2021-02-05] MEDS ORDERED: TRANEXAMIC ACID 1,000 MG/10 ML VIAL ONE ×2 (13:42→15:27)
[2021-02-05] MEDS ORDERED: ceFAZolin 1 GM VIAL ONE (13:49)
[2021-02-05] MEDS ORDERED: VANCOMYCIN 1 GM VIAL ONE (14:03)
[2021-02-05] MEDS ORDERED: PHENYLEPHRINE 10 MG/ML VIAL ONE (14:14)
[2021-02-05] MEDS ORDERED: VANCOMYCIN 1 GM VIAL MC ONE (14:14)
[2021-02-05] MEDS ORDERED: ROPIVACAINE 0.5% PF 20 ML AMPULE ONE (15:44)
--- NOTE | 2021-02-05 15:52 | OPERATIVE REPORT ---
Operative Report - General Admit Date: 02/04/21 Procedure Date: 02/05/21 Planned Procedure: Left total hip replacement Pre-Op Diagnosis: Displaced femoral neck fracture left hip Procedure Performed: Left total hip replacement: [employer] press-fit #6 anthology femoral component with high offset, 36 mm Oxinium femoral head, +8, 56 mm 3-hole porous acetabular component and neutral polyethylene liner Post Op Diagnosis: Same as preoperative diagnosis - Procedure Note Primary Surgeon: Mannie Rogers MD Secondary Surgeon: Chun ZALDIVAR Anesthesia Provider: Gaby Mojica CRNA Anesthesia Technique: Regional block, Spinal Pathology: Femoral head sent to pathology Estimated Blood Loss (mL): 200 Indications: This is a active and ambulatory 65-year-old gentleman with a history of atraumatic onset pain to his left hip starting approximately 3 weeks ago. It was severe enough that he went to primary care, an x-ray of the left hip was obtained and apparently the x-ray was felt to not show any fracture perhaps some mild arthritis. At any rate he had persistence of pain walked with a limp intermittently until yesterday he was lifting an air compressor and felt a pop about left hip. He had marked pain to his left hip and difficulty bearing weight on left leg. The patient was seen in the emergency room here and I was consulted. He was admitted last night and had preoperative medical evaluation. His clinical exam showed marked painful movement of left hip, shortening and external rotation deformity left leg. His x-rays showed a completely displaced femoral neck fracture left hip. He had preoperative medical evaluation. His comorbidities include history of cigarette smoking in the past, chronic obstructive pulmonary disease, history of hepatitis C, use of alcohol and methamphetamine. Because of his relatively young age and high activity level, a total hip arthroplasty was felt to be the best alternative for him. He was in agreement to the surgery and did sign informed consent. He understands that he is at increased risk for infection because of his comorbidities including use of steroids intermittently. Findings: He had a completely displaced femoral neck fracture left hip. There was some contusion to the articular cartilage of the femoral head but the articular cartilage was intact. The articular cartilage of the acetabulum was completely intact as well. Complications: None - Other Other Information/Narrative: After satisfactory spinal anesthesia had been achieved, the patient was placed in a lateral decubitus position with the Left hip facing superiorly. He was secured in the lateral decubitus position using a pegboard with 2 post securing the torso and 2 posts securing the pelvis. The Lefthip and Leftlower extremity were prepped and draped in a sterile manner in the usual fashion. A timeout procedure was performed by the entire operating room team and all were in agreement. A longitudinal incision was made about the lateral right hip beginning at the vastus lateralis ridge of the proximal femur and extending it proximally approximately 3 fingerbreadths above the trochanter. The subcutaneous tissue and fascia lori were split in line with the incision. The anterior one third of the gluteus medius was incised at the myotendinous junction. The gluteus medius was retracted medially. The hip capsule was exposed and was split in a T-shaped fashion. Part of the anterior hip capsule was excised. The femoral head was removed with flexion, adduction and external rotation and with use of corkscrew. The proximal femur was retracted. 2 acetabular retractors were placed one anteriorly directly against bone to reduce any soft tissue impingement to femoral nerve. The second retractor was placed more posteriorly directly against bone and preventing any impingement against sciatic nerve. The acetabulum was prepared with a large curette. Medialization of the acetabulum was performed with a small acetabular reamer and then widening was done up to a 55 mm reamer the final reamers were placed in approximately 20 degrees anteversion and 40 degrees of abduction. A trial acetabular component was inserted, 55 mm and this fit well. A permanent 56 mm R3 acetabular 3-hole component was then impacted in 40 degrees of abduction and approximately 20 degrees of anteversion. This had good fixation to push pull and rotation. Two screws 30 mm and 25 mm acetabular screw were inserted. The stability of the acetabular cup was very good. A trial acetabular liner was inserted into the cup. The femoral canal was opened with a box osteotome, starting reamer and then a short broach. Broaching was carried out to a #6. Calcar reaming was performed. Good fit and stability to the #6 stem was achieved. Trial reduction was performed. Hip motion was very good and the hip was stable to dislocation maneuvers. The trial components were removed. A permanent acetabular liner was impacted into the acetabular cup. The #6 high offset femoral stem was impacted and fully seated. The femoral head was impacted on the femoral trunnion. There was good stability to push pull and rotation. A 36 mm +8 head was impacted on the trunnion. The hip was reduced, had good leg length tension and good stability with dislocation maneuvers. 3-minute lavage with dilute Betadine was performed. The hip abductors were repaired at the myotendinous junction with #1 stratofix. The fascia lori was closed with #1 stratofix. The subcutaneous tissue was closed with 2-0 Vicryl. The skin was closed with a 3-0 Monocryl subcuticular closure and Dermabond. He tolerated the procedure well. A physician aquatics assistant department head was utilized during the procedure to provide retraction and protection of neurovascular structures as well as to facilitate dislocation and reduction of the hip joint.
[2021-02-05] MEDS ORDERED: SODIUM CHLORIDE FLUSH 0.9% 10 ML SYRINGE IVP PRN (16:13)
[2021-02-05] MEDS ORDERED: LACTATED RINGERS 1,000 ML IV ONE (16:27)
[2021-02-05] MEDS ORDERED: ENOXAPARIN 40 MG/0.4 ML SYRINGE SUBQ SCH (16:28)
[2021-02-05] MEDS ORDERED: IPRATROPIUM/ALBUTEROL 3 ML NEB INH ONE (16:32)
[2021-02-05] MEDS ORDERED: IPRATROPIUM/ALBUTEROL 3 ML NEB INH PRN (16:58)
--- NOTE | 2021-02-05 16:59 | ANESTHESIA POST OP EVALUATION ---
Anesthesia Post Eval - Post Anesthesia Eval Vitals: Last Vital Signs Temp 36.3 C L 02/05/21 16:45 Pulse 86 02/05/21 16:45 Resp 15 02/05/21 16:45 BP 135/82 H 02/05/21 16:45 Pulse Ox 99 02/05/21 16:45 CV Function Including HR & BP: Stable Pain Control: Satisfactory Nausea & Vomiting: Negative Mental Status: Baseline Respiratory Status: Airway Patent Hydration Status: Satisfactory Anesthesia Complications: None
[2021-02-05] MEDS: ENOXAPARIN 40 MG/0.4 ML SYRINGE SUBQ SCH (17:44)
[2021-02-05] MEDS ORDERED: ACETAMINOPHEN 500 MG TABLET PO SCH (18:00)
[2021-02-05] MEDS ORDERED: ethyl alcohoL 62% SWAB AMPULE NAS SCH (21:00)
[2021-02-05] MEDS: ceFAZolin 2 GM in SODIUM CHLORIDE 0.9% 100ML 100 ML IV SCH (21:40)
[2021-02-05] MEDS: NS W/20 MEQ KCL 1,000 ML IV SCH (21:40)
[2021-02-05] MEDS: ACETAMINOPHEN 500 MG TABLET PO SCH (21:41)
[2021-02-05] MEDS: CELECOXIB 100 MG CAPSULE PO SCH (21:41)
[2021-02-05] MEDS: ASPIRIN EC 81 MG TABLET PO SCH (21:41)
[2021-02-06] MEDS: SODIUM CHLORIDE FLUSH 0.9% 10 ML SYRINGE IVP SCH ×6 (02:47→16:22)
[2021-02-06] MEDS: oxyCODONE 5 MG TABLET PO PRN ×2 (03:42→19:40)
[2021-02-06] MEDS: ACETAMINOPHEN 500 MG TABLET PO SCH ×4 (03:42→21:05)
[2021-02-06 06:30] LABS: BASOPHILS % (AUTO) 0.1 %; HCT - HEMATOCRIT 39.1 % (42.0-52.0); HGB - HEMOGLOBIN 13.1 g/dL (14.0-18.0); LYMPHOCYTES # (AUTO) 1.2 10^3/uL (1.5-3.5); LYMPHOCYTES % (AUTO) 12.4 %; MEAN CORPUSCULAR HEMOGLOBIN 31.4 pg (27.0-31.0); MEAN CORPUSCULAR HGB CONC 33.5 g/dL (32.0-36.0); MEAN CORPUSCULAR VOLUME 93.8 fL (80.0-94.0); MEAN PLATELET VOLUME 9.3 fL (7.4-11.4); MONOCYTES # (AUTO) 0.9 10^3/uL (0.0-1.0); MONOCYTES % (AUTO) 9.4 %; NEUTROPHILS # (AUTO) 7.4 10^3/uL (1.5-6.6); NEUTROPHILS % (AUTO) 77.5 %; PLT - PLATELET COUNT 259 10^3/uL (130-450); RED BLOOD COUNT 4.17 10^6/uL (4.70-6.10); RED CELL DISTRIBUTION WIDTH 14.8 % (12.0-15.0); WHITE BLOOD COUNT 9.5 x10^3/uL (4.8-10.8)
[2021-02-06 06:33] LABS: SLIDE REVIEW? Indicated
[2021-02-06 06:39] LABS: CALCIUM 8.5 mg/dL (8.5-10.3); CREATININE 0.6 mg/dL (0.6-1.2); POTASSIUM 4.3 mmol/L (3.5-5.0)
[2021-02-06] MEDS: ceFAZolin 2 GM in SODIUM CHLORIDE 0.9% 100ML 100 ML IV SCH (06:39)
[2021-02-06] MEDS: NS W/20 MEQ KCL 1,000 ML IV SCH ×2 (06:41→19:31)
[2021-02-06 08:05] LABS: RBC MORPHOLOGY (MULTIPLE) 2+ ANISOCYTOSIS (NORMAL)
--- NOTE | 2021-02-06 08:30 | XRAY Report ---
PROCEDURE: Pelvis 1 View INDICATIONS: POST OP TECHNIQUE: 1 view(s) of the pelvis acquired. COMPARISON: None. FINDINGS: Bones: AP view of the pelvis shows no fracture or dislocation. A left prosthesis is seen with good po sitioning and no pericardial hardware lucency to suggest loosening. The sacroiliac joints have degene rative changes. Soft tissues: Visualized bowel gas pattern is normal. No suspicious soft tissue calcifications. IMPRESSION: 1. Postoperative changes of left hip replacement without complication. 2. No other significant change. Reviewed by: Shahram Morales on 02/06/2021 8:28 AM PDT Approved by: Shahram Morales on 02/06/2021 8:28 AM PDT Station ID: [id number]
[2021-02-06] MEDS: CELECOXIB 100 MG CAPSULE PO SCH ×2 (09:24→21:05)
[2021-02-06] MEDS: TAMSULOSIN 0.4 MG CAPSULE PO SCH (09:24)
[2021-02-06] MEDS: ASPIRIN EC 81 MG TABLET PO SCH ×2 (09:25→21:05)
[2021-02-06] MEDS: ENOXAPARIN 40 MG/0.4 ML SYRINGE SUBQ SCH (09:26)
[2021-02-06] MEDS: ethyl alcohoL 62% SWAB AMPULE NAS SCH ×2 (09:27→21:05)
[2021-02-06] MEDS: MULTIVITAMIN 10 ML, FOLIC ACID INJ 1 MG, THIAMINE INJ 100 MG, MAGNESIUM SULFATE 2 GM in... IV SCH ×10 (09:31→09:33)
--- NOTE | 2021-02-06 09:57 | PROVIDER PROGRESS NOTE ---
Subjective - General Admit Date: 02/04/21 Procedure Date: 02/05/21 Post Op Days: 1 Procedure Performed: Left MAYRA - Review of Systems Wound/Incisions: positive: Dressing dry and intact General: negative: Fever, Chills Pulmonary: negative: Shortness of breath Cardiovascular: negative: Chest pain Gastrointestinal: negative: Nausea, Vomiting Musculoskeletal: positive: Joint pain - Other Other Information/Narrative: Patient is a 65-year-old male with history includes everyday EtOH use, frequent methamphetamine use who is postop day 1 Left total hip arthroplasty performed by Dr Mannie Rogers at [facility] on 02/05/2021. Patient denies any signs or symptoms of infection his pain is well controlled. Patient is being comanaged by hospitalist. Objective - Patient Data Reviewed Vital Signs: Yes Vital Signs: Vital Signs x48h Temp Pulse Resp BP Pulse Ox 02/06/21 08:27 36.5 C 97 20 142/71 H 95 02/06/21 05:48 36.5 C 97 18 140/72 H 95 Weight: Weight 02/04/21 02/05/21 02/06/21 23:59 23:59 23:59 Weight (kg) 86.183 kg 86.183 kg Intake & Output: Intake and Output Totals x24h 02/04/21 02/05/21 02/06/21 23:59 23:59 23:59 Intake Total 370 3486.866 1261.667 Output Total 2150 325 Balance 370 1336.866 936.667 - Lab Results Lab Results: 02/06/21 06:10 02/06/21 06:10 Other Lab Results: Lab Results x24hrs 02/06/21 02/06/21 Range/Units 06:10 06:10 WBC 9.5 (4.8-10.8) x10^3/uL RBC 4.17 L (4.70-6.10) 10^6/uL Hgb 13.1 L (14.0-18.0) g/dL Hct 39.1 L (42.0-52.0) % MCV 93.8 (80.0-94.0) fL MCH 31.4 H (27.0-31.0) pg MCHC 33.5 (32.0-36.0) g/dL RDW 14.8 (12.0-15.0) % Plt Count 259 (130-450) 10^3/uL MPV 9.3 (7.4-11.4) fL Neut # (Auto) 7.4 H (1.5-6.6) 10^3/uL Lymph # (Auto) 1.2 L (1.5-3.5) 10^3/uL Collin # (Auto) 0.9 (0.0-1.0) 10^3/uL Eos # (Auto) 0.0 (0.0-0.7) 10^3/uL Baso # (Auto) 0.0 (0.0-0.1) 10^3/uL Absolute Nucleated RBC 0.00 x10^3/uL Nucleated RBC % 0.0 /100WBC Manual Slide Review Indicated RBC Morph Micro Appear 2+ ANISOCYTOSIS (NORMAL) Sodium 135 (135-145) mmol/L Potassium 4.3 (3.5-5.0) mmol/L Chloride 100 L (101-111) mmol/L Carbon Dioxide 25 (21-32) mmol/L Anion Gap 10.0 (6-13) BUN 25 H (6-20) mg/dL Creatinine 0.6 (0.6-1.2) mg/dL Estimated GFR (MDRD) 136 (>89) Glucose 117 H (70-100) mg/dL Calcium 8.5 (8.5-10.3) mg/dL - Imaging Results Radiology Imaging: positive: EMP read indepedently (I have independently visualized the one view pelvis x-ray taken postop showing total hip arthroplasty with good anatomical alignment and no apparent hardware loosening.) - Current Medications Current Medications: Current Medications Generic Name Dose Route Start Last Admin Trade Name Freq PRN Reason Stop Dose Admin Acetaminophen 1,000 mg 02/05/21 21:00 02/06/21 09:24 Acetaminophen 500 Mg Tablet PO 1,000 mg Q6H JANELLE Administration Albuterol/Ipratropium 3 ml 02/05/21 07:42 02/05/21 08:37 Ipratropium/Albuterol 3 Ml Neb INH 3 ml Q4HR PRN Administration Wheezing Alcohol 1 amp 02/05/21 10:00 02/06/21 09:27 Ethyl Alcohol 62% Swab Ampule REY 1 amp BID JANELLE Administration Aspirin 81 mg 02/05/21 21:00 02/06/21 09:25 Aspirin Ec 81 Mg Tablet PO 81 mg BID JANELLE Administration Celecoxib 200 mg 02/05/21 21:00 02/06/21 09:24 Celecoxib 100 Mg Capsule PO 200 mg BID JANELLE Administration Enoxaparin Sodium 40 mg 02/05/21 16:30 02/06/21 09:26 Enoxaparin 40 Mg/0.4 Ml Syringe SUBQ 40 mg DAILY JANELLE Administration Multivitamins 10 ml/ Folic 1,015.2 mls @ 100 mls/hr 02/04/21 18:49 02/06/21 09:33 Acid 1 mg/ Thiamine HCl 100 mg IV 02/06/21 21:00 100 mls/hr / Magnesium Sulfate 2 gm/ DAILY JANELLE Administration Sodium Chloride Potassium Chloride/Sodium Chloride 1,000 mls @ 100 mls/hr 02/05/21 17:00 02/06/21 06:41 Normal Saline 0.9% W/20 Meq Kcl IV 100 mls/hr .Q10H JANELLE Administration Lorazepam 1 mg 02/04/21 18:50 02/05/21 06:36 Lorazepam 1 Mg Tablet PO 1 mg Q1H PRN Administration CIWA > 8 Protocol Morphine Sulfate 2 mg 02/04/21 16:28 02/05/21 11:24 Morphine 2 Mg/Ml Carpuject IVP 2 mg Q2HR PRN Administration Pain 8 to 10 Oxycodone HCl 5 mg 02/05/21 16:13 02/06/21 03:42 Oxycodone 5 Mg Tablet PO 5 mg Q6HR PRN Administration PAIN Sodium Chloride 10 ml 02/04/21 16:28 02/05/21 05:40 Sodium Chloride Flush 0.9% 10 Ml Syringe IVP 10 ml PRN PRN Administration NEEDED PER PROVIDER ORDERS Sodium Chloride 10 ml 02/04/21 17:00 02/06/21 03:43 Sodium Chloride Flush 0.9% 10 Ml Syringe IVP 10 ml 0100,0900,1700 [facility] Administration Sodium Chloride 10 ml 02/05/21 17:00 02/06/21 02:47 Sodium Chloride Flush 0.9% 10 Ml Syringe IVP Not Given 0100,0900,1700 [facility] Tamsulosin HCl 0.4 mg 02/05/21 09:00 02/06/21 09:24 Tamsulosin 0.4 Mg Capsule PO 0.4 mg DAILY JANELLE Administration - Physical Exam Wound/Incisions: positive: Dressing dry and intact General Appearance: positive: No acute distress, Alert Respiratory: positive: No respiratory distress Skin: positive: Color nml, No rash, Warm, Dry Extremities: positive: Joint swelling Neurologic/Psychiatric: positive: Motor nml, Sensation nml ABX Reporting Has patient been on IV antibiotics over the past 48 hours?: Yes Impression/Plan - Problem List Problem List: Patient is a 65-year-old man with everyday EtOH use, frequent methamphetamine use who is postop day 1 total hip arthroplasty after an atraumatic left femoral neck fracture performed by Dr Mannie Rogers at [facility] on 12/05/2020. Patient shows no signs or symptoms of infection his pain is well controlled. Patient is weightbearing as tolerated on his left leg with use of a front wheeled walker. Patient is cleared for discharge from an orthopedic surgery standpoint.Patient can use scheduled Tylenol and ibuprofen for postsurgical pain, 5 mg of oxycodone can be considered for breakthrough pain but up to the discretion of the hospitalist given his withdrawal management.Patient to take 81 mg of aspirin twice a day for DVT prophylaxis for 6 weeks. Patient has been counseled on positioning precautions of his left lower limb after MAYRA including no excessive internal rotation of lower limb, not to cross the left lower limb past midline, And to avoid flexing the hip more than 90 degrees for 8 weeks.
[2021-02-06] MEDS: IPRATROPIUM/ALBUTEROL 3 ML NEB INH PRN ×2 (10:30→15:00)
--- NOTE | 2021-02-06 11:29 | PROVIDER PROGRESS NOTE ---
Subjective - Prog Note Date Prog Note Date: 02/06/21 Prog Note Time: 11:26 - Subjective Subjective: Is very happy at the lack of pain he has. But he is a little bit anxious about when that nerve block is going to wear off on his leg. He denies chest pain, palpitations, shortness of breath. Denies any tremulousness, diaphoresis, hallucinations. Current Medications - Current Medications Current Medications: Active Medications Acetaminophen (Acetaminophen 500 Mg Tablet) 1,000 mg PO Q6H [facility] Last Admin: 02/06/21 09:24 Dose: 1,000 mg Documented by: Albuterol/Ipratropium (Ipratropium/Albuterol 3 Ml Neb) 3 ml INH Q4HR PRN PRN Reason: Wheezing Last Admin: 02/06/21 10:30 Dose: 3 ml Documented by: Albuterol/Ipratropium (Ipratropium/Albuterol 3 Ml Neb) 3 ml INH Q4HR PRN PRN Reason: Wheezing Alcohol (Ethyl Alcohol 62% Swab Ampule) 1 amp REY BID [facility] Last Admin: 02/06/21 09:27 Dose: 1 amp Documented by: Aspirin (Aspirin Ec 81 Mg Tablet) 81 mg PO BID [facility] Last Admin: 02/06/21 09:25 Dose: 81 mg Documented by: Celecoxib (Celecoxib 100 Mg Capsule) 200 mg PO BID [facility] Last Admin: 02/06/21 09:24 Dose: 200 mg Documented by: Docusate Sodium (Docusate Sodium 100 Mg Capsule) 100 mg PO BID PRN PRN Reason: Constipation Enoxaparin Sodium (Enoxaparin 40 Mg/0.4 Ml Syringe) 40 mg SUBQ DAILY [facility] Last Admin: 02/06/21 09:26 Dose: 40 mg Documented by: Hydromorphone HCl (Hydromorphone 1 Mg/Ml Carpuject) 1 mg IVP Q2HR PRN PRN Reason: Breakthrough Pain Multivitamins 10 ml/ Folic Acid 1 mg/ Thiamine HCl 100 mg / Magnesium Sulfate 2 gm/Sodium Chloride 1,015.2 mls @ 100 mls/hr IV DAILY [facility] Stop: 02/06/21 21:00 Last Admin: 02/06/21 09:33 Dose: 100 mls/hr Documented by: Potassium Chloride/Sodium Chloride (Normal Saline 0.9% W/20 Meq Kcl) 1,000 mls @ 100 mls/hr IV .Q10H [facility] Last Infusion: 02/06/21 09:57 Dose: Infused Documented by: Lorazepam (Lorazepam 1 Mg Tablet) 1 mg PO Q1H PRN; Protocol PRN Reason: CIWA > 8 Last Admin: 02/05/21 06:36 Dose: 1 mg Documented by: Morphine Sulfate (Morphine 2 Mg/Ml Carpuject) 2 mg IVP Q2HR PRN PRN Reason: Pain 8 to 10 Last Admin: 02/05/21 11:24 Dose: 2 mg Documented by: Multivitamins (Multivitamin Tablet) 1 tab PO DAILYWM [facility] Ondansetron HCl (Ondansetron Odt 4 Mg Tablet) 4 mg TL Q6HR PRN PRN Reason: Nausea / Vomiting Oxycodone HCl (Oxycodone 5 Mg Tablet) 5 mg PO Q6HR PRN PRN Reason: PAIN Last Admin: 02/06/21 03:42 Dose: 5 mg Documented by: Sodium Chloride (Sodium Chloride Flush 0.9% 10 Ml Syringe) 10 ml IVP PRN PRN PRN Reason: NEEDED PER PROVIDER ORDERS Last Admin: 02/05/21 05:40 Dose: 10 ml Documented by: Sodium Chloride (Sodium Chloride Flush 0.9% 10 Ml Syringe) 10 ml IVP 0100,0900,1700 [facility] Last Admin: 02/06/21 09:57 Dose: Not Given Documented by: Sodium Chloride (Sodium Chloride Flush 0.9% 10 Ml Syringe) 10 ml IVP 0100,0900,1700 [facility] Last Admin: 02/06/21 09:58 Dose: Not Given Documented by: Sodium Chloride (Sodium Chloride Flush 0.9% 10 Ml Syringe) 10 ml IVP PRN PRN PRN Reason: NEEDED PER PROVIDER ORDERS Tamsulosin HCl (Tamsulosin 0.4 Mg Capsule) 0.4 mg PO DAILY [facility] Last Admin: 02/06/21 09:24 Dose: 0.4 mg Documented by: Thiamine HCl (Thiamine 100 Mg Tablet) 100 mg PO DAILY [facility] Albuterol Sulf [Ventolin Hfa Inhaler] 2 puffs PO Q4H PRN 02/05/21 Budesonide/Formoterol Fumarate [Symbicort 160-4.5 Mcg Inhaler] 2 puffs PO BID 02/05/21 FLUoxetine [PROzac] 40 mg PO DAILY 02/05/21 buPROPion HCL [Bupropion Xl] 300 mg PO DAILY 02/05/21 Objective - Vital Signs/Intake & Output Reviewed Vital Signs: Yes Vital Signs: Vital Signs x48h Temp Pulse Pulse Resp BP Pulse Ox 02/06/21 10:30 89 18 02/06/21 08:27 36.5 C 97 20 142/71 H 95 02/06/21 05:48 36.5 C 97 18 140/72 H 95 Intake & Output: Intake & Output 02/03/21 02/04/21 02/05/21 02/06/21 23:59 23:59 23:59 23:59 Intake Total 370 3486.866 1611.667 Output Total 2150 325 Balance 370 9374.837 5517.667 - Objective General Appearance: positive: No acute distress, Alert Eyes Bilateral: positive: PERRL, EOMI ENT: positive: No signs of dehydration Respiratory: positive: No respiratory distress. negative: Wheezes, Rales, Rhonchi Cardiovascular: positive: Regular rate & rhythm. negative: Gallop/S4, Friction rub Abdomen: positive: Non-tender, No organomegaly, Nml bowel sounds, No distention Skin: positive: Warm, Dry. negative: Diaphoresis Extremities: positive: Full ROM (except the left leg), No pedal edema Neurologic/Psychiatric: positive: Oriented x3, CN's nml (2-12), Motor nml - Lab Results Fish Bones: 02/06/21 06:10 02/06/21 06:10 Other Labs: Lab Results x24hrs 02/06/21 02/06/21 Range/Units 06:10 06:10 WBC 9.5 (4.8-10.8) x10^3/uL RBC 4.17 L (4.70-6.10) 10^6/uL Hgb 13.1 L (14.0-18.0) g/dL Hct 39.1 L (42.0-52.0) % MCV 93.8 (80.0-94.0) fL MCH 31.4 H (27.0-31.0) pg MCHC 33.5 (32.0-36.0) g/dL RDW 14.8 (12.0-15.0) % Plt Count 259 (130-450) 10^3/uL MPV 9.3 (7.4-11.4) fL Neut # (Auto) 7.4 H (1.5-6.6) 10^3/uL Lymph # (Auto) 1.2 L (1.5-3.5) 10^3/uL Barren # (Auto) 0.9 (0.0-1.0) 10^3/uL Eos # (Auto) 0.0 (0.0-0.7) 10^3/uL Baso # (Auto) 0.0 (0.0-0.1) 10^3/uL Absolute Nucleated RBC 0.00 x10^3/uL Nucleated RBC % 0.0 /100WBC Manual Slide Review Indicated RBC Morph Micro Appear 2+ ANISOCYTOSIS (NORMAL) Sodium 135 (135-145) mmol/L Potassium 4.3 (3.5-5.0) mmol/L Chloride 100 L (101-111) mmol/L Carbon Dioxide 25 (21-32) mmol/L Anion Gap 10.0 (6-13) BUN 25 H (6-20) mg/dL Creatinine 0.6 (0.6-1.2) mg/dL Estimated GFR (MDRD) 136 (>89) Glucose 117 H (70-100) mg/dL Calcium 8.5 (8.5-10.3) mg/dL Assessment/Plan - Problem List (1) Left displaced femoral neck fracture Impression: My suspicion was that he has aseptic necrosis of the hip. Ortho demures and feels that the femoral head would have broken off and that lower likelihood of aseptic necrosis. Intermittent steroid use in the past, alcohol abuse in the mo st. He may have developed a small crack that was felt 2 weeks ago but not seen on film. 02/04, with a sudden heavy lifting, his hip gave way and spontaneous fracture occurred. There was no history of trauma or fall. He went to the operating room February 05. Today is postop day #1 Plan: Continue morphine as needed, oxycodone as needed, DVT prophylaxis Physical therapy evaluation today (2) Possible osteopenia Conclusion/Plan: In the outpatient setting he may need a DEXA scan and treated appropriately for osteopenia/osteoporosis. (3) COPD without exacerbation Conclusion/Plan: Currently not in exacerbation. Lung exam is clear. He has been on Symbicort and ProAir in the past. Currently not on his medication list. Plan: DuoNeb as needed (4) Depression with anxiety Conclusion/Plan: In the past he has been on fluoxetine and bupropion. Most recently on bupropion. That will be resumed while he is here. (5) Abnormal chest x-ray Conclusion/Plan: He denies any cough, fever, chills, myalgias. Does not have a history of congestive heart failure. Does not have a history of inhalation injury. He was just seen yesterday in the [facility] emergency room. We checked PCR for COVID- 19 and he is negative. He continues to not have any symptoms in spite of the diffuse interstitial changes seen. Plan: Check echocardiogram For completeness sake. Echocardiogram was done this morning. I will review for final result. In the outpatient setting he may need a spiral CT to look for early interstitial fibrosis. I will review his use of methamphetamines to make sure there is no inhalation there. (6) BPH loc w urin obs/LUTS Conclusion/Plan: Started on Flomax the night of admission. Watch him carefully in the postoperative setting to make sure he does not have urinary retention once the Valadez is pulled. (7) Substance abuse Conclusion/Plan: Gentleman has intermittent substance abuse of alcohol and methamphetamines. On admission was very minimally tremulous. No diaphoresis no tachycardia no hypertension. Continues to be stable without evidence of withdrawal on exam has been seen by Social Work: Pt reports that he and normally use alcohol infrequently but have recently been drinking daily because of latent depression and stress. Pt reports taking medication for depression and anxiety, and he fells stable at this time w/no SI. Denies ever attempting suicide. Pt admitted to sporadic methamphetamine use and advised that he completed [facility] treatment at [facility] in 2002 and he and attend AA meetings weekly but have not been in several months. Pt intends to return to AA meetings when physically able and declined referral/literature for LUCA treatment/intervention. Pt requested any information on family financial assistance for he and in the [place] area. SW provided a list of social service resources in the [facility]. A: Pt has a stable living environment at home in [place] and has a supportive and son-in-law for medical and social needs. Pt is currently able to gabby ntain level of independence at home when m/c and d/c. Pt may requires SNF palcement for rehab at d/c and if so he prefers to be placed in the [place] area near home and . Pt is fully independent with ambulation and activities of daily living. Plan: [facility] protocol Banana bag to stop today and change to oral vitamins.
[2021-02-06] MEDS: MORPHINE 2 MG/ML CARPUJECT IVP PRN ×2 (15:53→23:49)
[2021-02-06] MEDS: HYDROmorphone 1 MG/ML CARPUJECT IVP PRN (17:37)
[2021-02-07] MEDS: SODIUM CHLORIDE FLUSH 0.9% 10 ML SYRINGE IVP SCH ×6 (00:56→18:06)
[2021-02-07] MEDS: oxyCODONE 5 MG TABLET PO PRN ×4 (01:54→22:34)
[2021-02-07] MEDS: ACETAMINOPHEN 500 MG TABLET PO SCH ×3 (03:47→18:05)
[2021-02-07] MEDS: NS W/20 MEQ KCL 1,000 ML IV SCH ×2 (04:58→14:10)
[2021-02-07] MEDS: HYDROmorphone 1 MG/ML CARPUJECT IVP PRN (04:58)
[2021-02-07 06:45] LABS: BASOPHILS % (AUTO) 0.5 %; EOSINOPHILS # (AUTO) 0.3 10^3/uL (0.0-0.7); EOSINOPHILS % (AUTO) 3.9 %; HCT - HEMATOCRIT 37.8 % (42.0-52.0); HGB - HEMOGLOBIN 12.4 g/dL (14.0-18.0); LYMPHOCYTES # (AUTO) 2.2 10^3/uL (1.5-3.5); LYMPHOCYTES % (AUTO) 27.6 %; MEAN CORPUSCULAR HEMOGLOBIN 30.5 pg (27.0-31.0); MEAN CORPUSCULAR HGB CONC 32.8 g/dL (32.0-36.0); MEAN CORPUSCULAR VOLUME 92.9 fL (80.0-94.0); MEAN PLATELET VOLUME 9.2 fL (7.4-11.4); MONOCYTES # (AUTO) 0.8 10^3/uL (0.0-1.0); MONOCYTES % (AUTO) 10.2 %; NEUTROPHILS # (AUTO) 4.6 10^3/uL (1.5-6.6); NEUTROPHILS % (AUTO) 57.1 %; PLT - PLATELET COUNT 224 10^3/uL (130-450); RED BLOOD COUNT 4.07 10^6/uL (4.70-6.10); RED CELL DISTRIBUTION WIDTH 14.9 % (12.0-15.0); WHITE BLOOD COUNT 8.1 x10^3/uL (4.8-10.8)
[2021-02-07 06:53] LABS: CALCIUM 8.2 mg/dL (8.5-10.3); CREATININE 0.6 mg/dL (0.6-1.2); POTASSIUM 4.1 mmol/L (3.5-5.0)
[2021-02-07] MEDS: MULTIVITAMIN TABLET PO SCH (07:50)
[2021-02-07] MEDS: CELECOXIB 100 MG CAPSULE PO SCH ×2 (08:49→21:09)
[2021-02-07] MEDS: ENOXAPARIN 40 MG/0.4 ML SYRINGE SUBQ SCH (08:50)
[2021-02-07] MEDS: THIAMINE 100 MG TABLET PO SCH (08:50)
[2021-02-07] MEDS: DOCUSATE SODIUM 100 MG CAPSULE PO PRN (08:50)
[2021-02-07] MEDS: ethyl alcohoL 62% SWAB AMPULE NAS SCH ×2 (08:50→21:10)
[2021-02-07] MEDS: ASPIRIN EC 81 MG TABLET PO SCH ×2 (08:50→21:09)
[2021-02-07] MEDS: TAMSULOSIN 0.4 MG CAPSULE PO SCH (08:50)
--- NOTE | 2021-02-07 12:26 | PROVIDER PROGRESS NOTE ---
Subjective - Prog Note Date Prog Note Date: 02/07/21 Prog Note Time: 12:23 - Subjective Pt reports feeling: Worse Subjective: Today, he is wheezing more. More short of breath. Coughing more. Denies chest pain, palpitations, leg edema. Although the left hip aches, it is bearable. Is not the pain that he had when he was admitted. In reviewing his vital signs there is no fever. He is 93% on room air. The lowest he has been because he is usually running around 96 to 97% on room air. New social situation. In updating his on his care yesterday, she let me know that they are not living together. He moved out a month ago because they are having marital difficulties over their combined alcohol problem and his meth use. She does not want him back. She is also with Covid pneumonia. He states that when this all happened, she was immediately sympathetic and wanted him back when he was ready to get on the hospital. Something happened between his admission and yesterday and she no longer wants him back. So he has made arr angements to go live with his sister who lives down in [place]. Current Medications - Current Medications Current Medications: Active Medications Acetaminophen (Acetaminophen 500 Mg Tablet) 1,000 mg PO Q6H [facility] Last Admin: 02/07/21 11:30 Dose: 1,000 mg Documented by: Albuterol/Ipratropium (Ipratropium/Albuterol 3 Ml Neb) 3 ml INH Q4HR PRN PRN Reason: Wheezing Last Admin: 02/06/21 15:00 Dose: 3 ml Documented by: Albuterol/Ipratropium (Ipratropium/Albuterol 3 Ml Neb) 3 ml INH Q4HR PRN PRN Reason: Wheezing Alcohol (Ethyl Alcohol 62% Swab Ampule) 1 amp REY BID [facility] Last Admin: 02/07/21 08:50 Dose: 1 amp Documented by: Aspirin (Aspirin Ec 81 Mg Tablet) 81 mg PO BID [facility] Last Admin: 02/07/21 08:50 Dose: 81 mg Documented by: Celecoxib (Celecoxib 100 Mg Capsule) 200 mg PO BID [facility] Last Admin: 02/07/21 08:49 Dose: 200 mg Documented by: Docusate Sodium (Docusate Sodium 100 Mg Capsule) 100 mg PO BID PRN PRN Reason: Constipation Last Admin: 02/07/21 08:50 Dose: 100 mg Documented by: Enoxaparin Sodium (Enoxaparin 40 Mg/0.4 Ml Syringe) 40 mg SUBQ DAILY [facility] Last Admin: 02/07/21 08:50 Dose: 40 mg Documented by: Hydromorphone HCl (Hydromorphone 1 Mg/Ml Carpuject) 1 mg IVP Q2HR PRN PRN Reason: Breakthrough Pain Last Admin: 02/07/21 04:58 Dose: 1 mg Documented by: Potassium Chloride/Sodium Chloride (Normal Saline 0.9% W/20 Meq Kcl) 1,000 mls @ 100 mls/hr IV .Q10H [facility] Last Admin: 02/07/21 04:58 Dose: 100 mls/hr Documented by: Lorazepam (Lorazepam 1 Mg Tablet) 1 mg PO Q1H PRN; Protocol PRN Reason: CIWA > 8 Last Admin: 02/05/21 06:36 Dose: 1 mg Documented by: Morphine Sulfate (Morphine 2 Mg/Ml Carpuject) 2 mg IVP Q2HR PRN PRN Reason: Pain 8 to 10 Last Admin: 02/06/21 23:49 Dose: 2 mg Documented by: Multivitamins (Multivitamin Tablet) 1 tab PO DAILYWM [facility] Last Admin: 02/07/21 07:50 Dose: 1 tab Documented by: Ondansetron HCl (Ondansetron Odt 4 Mg Tablet) 4 mg TL Q6HR PRN PRN Reason: Nausea / Vomiting Oxycodone HCl (Oxycodone 5 Mg Tablet) 5 mg PO Q6HR PRN PRN Reason: PAIN Last Admin: 02/07/21 07:50 Dose: 5 mg Documented by: Polyethylene Glycol (Polyethylene Glycol 3350 17 Gm Packet) 17 gm PO DAILY [facility] Sodium Chloride (Sodium Chloride Flush 0.9% 10 Ml Syringe) 10 ml IVP PRN PRN PRN Reason: NEEDED PER PROVIDER ORDERS Last Admin: 02/05/21 05:40 Dose: 10 ml Documented by: Sodium Chloride (Sodium Chloride Flush 0.9% 10 Ml Syringe) 10 ml IVP 0100,0900,1700 [facility] Last Admin: 02/07/21 08:50 Dose: 10 ml Documented by: Sodium Chloride (Sodium Chloride Flush 0.9% 10 Ml Syringe) 10 ml IVP 0100,0900,1700 [facility] Last Admin: 02/07/21 08:50 Dose: 10 ml Documented by: Sodium Chloride (Sodium Chloride Flush 0.9% 10 Ml Syringe) 10 ml IVP PRN PRN PRN Reason: NEEDED PER PROVIDER ORDERS Tamsulosin HCl (Tamsulosin 0.4 Mg Capsule) 0.4 mg PO DAILY [facility] Last Admin: 02/07/21 08:50 Dose: 0.4 mg Documented by: Thiamine HCl (Thiamine 100 Mg Tablet) 100 mg PO DAILY [facility] Last Admin: 02/07/21 08:50 Dose: 100 mg Documented by: Albuterol Sulf [Ventolin Hfa Inhaler] 2 puffs PO Q4H PRN 02/05/21 Budesonide/Formoterol Fumarate [Symbicort 160-4.5 Mcg Inhaler] 2 puffs PO BID 02/05/21 FLUoxetine [PROzac] 40 mg PO DAILY 02/05/21 buPROPion HCL [Bupropion Xl] 300 mg PO DAILY 02/05/21 Objective - Vital Signs/Intake & Output Reviewed Vital Signs: Yes Vital Signs: Vital Signs x48h Temp Pulse Resp BP Pulse Ox 02/07/21 08:00 36.4 C L 91 18 140/64 H 93 Intake & Output: Intake & Output 02/04/21 02/05/21 02/06/21 02/07/21 23:59 23:59 23:59 23:59 Intake Total 370 3486.866 3248.327 1585 Output Total 2150 2175 1175 Balance 370 3169.458 5960.327 410 - Objective General Appearance: positive: Alert, Mild distress (And wheeze. But while he is talking to me he is also eating which increases his respiratory effort. Eating 1 00% of his meals.) Eyes Bilateral: positive: PERRL, EOMI ENT: positive: Pharynx nml, No signs of dehydration Neck: positive: No JVD, Lymphadenopathy (R) (shotty), Lymphadenopathy (L) (shotty). negative: Stiff neck Respiratory: positive: Wheezes, Other (mild xie and he is uncomfortable he says). negative: Rales, Rhonchi Cardiovascular: positive: Regular rate & rhythm, Systolic murmur. negative: Gallop/S4, Friction rub Abdomen: positive: Non-tender, No organomegaly, Nml bowel sounds, No distention Skin: positive: Warm, Dry Extremities: positive: Full ROM, No pedal edema Neurologic/Psychiatric: positive: Oriented x3, CN's nml (2-12), Motor nml, Sensation nml - Lab Results Fish Bones: 02/07/21 06:14 02/07/21 06:14 Other Labs: Lab Results x24hrs 02/07/21 02/07/21 Range/Units 06:14 06:14 WBC 8.1 (4.8-10.8) x10^3/uL RBC 4.07 L (4.70-6.10) 10^6/uL Hgb 12.4 L (14.0-18.0) g/dL Hct 37.8 L (42.0-52.0) % MCV 92.9 (80.0-94.0) fL MCH 30.5 (27.0-31.0) pg MCHC 32.8 (32.0-36.0) g/dL RDW 14.9 (12.0-15.0) % Plt Count 224 (130-450) 10^3/uL MPV 9.2 (7.4-11.4) fL Neut # (Auto) 4.6 (1.5-6.6) 10^3/uL Lymph # (Auto) 2.2 (1.5-3.5) 10^3/uL [place] # (Auto) 0.8 (0.0-1.0) 10^3/uL Eos # (Auto) 0.3 (0.0-0.7) 10^3/uL Baso # (Auto) 0.0 (0.0-0.1) 10^3/uL Absolute Nucleated RBC 0.00 x10^3/uL Nucleated RBC % 0.0 /100WBC Sodium 136 (135-145) mmol/L Potassium 4.1 (3.5-5.0) mmol/L Chloride 103 (101-111) mmol/L Carbon Dioxide 26 (21-32) mmol/L Anion Gap 7.0 (6-13) BUN 16 (6-20) mg/dL Creatinine 0.6 (0.6-1.2) mg/dL Estimated GFR (MDRD) 136 (>89) Glucose 91 (70-100) mg/dL Calcium 8.2 L (8.5-10.3) mg/dL ABX Reporting Has patient been on IV antibiotics over the past 48 hours?: No Assessment/Plan - Problem List (1) Left displaced femoral neck fracture Impression: My suspicion was that he has aseptic necrosis of the hip. Ortho demures and feels that the femoral head would have broken off and that lower likelihood of aseptic necrosis. Intermittent steroid use in the past, alcohol abuse in the past. He may have developed a small crack that was felt 2 weeks ago but not seen on film. 02/04, with a sudden heavy lifting, his hip gave way and spontaneous fracture occurred. There was no history of trauma or fall. He went to the operating room February 05. Today is postop day #2 He has been working with physical therapy and they feel that he will most likely be able to be discharged to regular private home. He is making arrangements to go to his sister's house. His only concern is trying to get upstairs. Plan: Work with physical therapy for stair mobility Continue as needed oxycodone, DVT prophylaxis (2) Possible osteopenia Conclusion/Plan: In the outpatient setting he may need a DEXA scan and treated appropriately for osteopenia/osteoporosis. I have reminded him of that again today. Make sure that he touches base with his primary care provider for that work-up in the outpatient setting. (3) COPD with exacerbation today Conclusion/Plan: Currently wheezing quite a bit. Mild tachypnea with effort. Plan: DuoNeb to change to fixed schedule dose and albuterol prn Repeat COVID-19 test. His admission chest x-ray diffuse interstitial changes. But was Covid negative. Solu-Medrol 40 mg x 1 (4) Depression with anxiety Conclusion/Plan: In the past he has been on fluoxetine and bupropion. Most recently on bupropion. That will be resumed while he is here. (5) Abnormal chest x-ray Conclusion/Plan: He denied any cough, fever, chills, myalgias on admit. Does not have a history of congestive heart failure. Does not have a history of inhalation injury. He was just seen yesterday in the [facility] emergency room. We checked PCR for COVID-19 on admit and he was negative. HIs is with Covid pneumonia but he has not been in contact w her for a month. Preliminary echocardiogram report has been filed. In the outpatient setting a final report will need to be reviewed by his primary care provider. Left ventricular wall thickness is normal. Ejection fraction is 60 to 65%. Atria are normal sizes. Right ventricle is normal in size and function. No valvular heart disease. Right ventricular systolic pressure less than 35 mmHg. Plan: Repeat COVID-19 testing Treat COPD with steroids and nebs I still recommend an outpatient CT, spiral, to evaluate for early interstitial fibrosis (6) BPH loc w urin obs/LUTS Conclusion/Plan: Started on Flomax the night of admission. So far no symptoms of retention since Valadez has been pulled from postop setting (7) Substance abuse Conclusion/Plan: Gentleman has intermittent substance abuse of alcohol and methamphetamines. On admission was very minimally tremulous. No diaphoresis no tachycardia no hypertension. Continues to be stable without evidence of withdrawal on exam has been seen by Social Work: Pt reports that he and normally use alcohol infrequently but have recently been drinking daily because of latent depression and stress. Pt reports taking medication for depression and anxiety, and he fells stable at this time w/no SI. Denies ever attempting suicide. Pt admitted to sporadic methamphetamine use and advised that he completed LUCA treatment at [facility] in 2002 and he and attend AA meetings weekly but have not been in several months. Pt intends to return to AA meetings when physically able and declined referral/literature for LUCA treatment/intervention. Pt requested any information on family financial assistance for he and in the [facility]. SW provided a list of social service resources in the [facility]. A: Pt has a stable living environment at home in [place] and has a supportive and son-in-law for medical and social needs. Pt is currently able to maintain level of independence at home when m/c and d/c. Pt may requires SNF palcement for rehab at d/c and if so he prefers to be placed in the [place] area near home and . Pt is fully independent with ambulation and activities of daily living. New issue came to like today and that they have not been living together for over a month. He is planning to go live with his sister. He still plans on following through with AA, counseling etc. Plan: CIWA protocol has not been needed. No withdrawal during his stay. Did receive Banana bag and is now on oral vitamins.
[2021-02-07] MEDS ORDERED: methylPREDNISolone SUCCINATE 40 MG/ML VIAL IVP STA (12:34)
[2021-02-07] MEDS ORDERED: ALBUTEROL NEB 2.5 MG/3 ML INH PRN (12:35)
[2021-02-07] MEDS: polyethylene glycoL 3350 17 GM PACKET PO SCH (13:35)
[2021-02-07] MEDS: IPRATROPIUM/ALBUTEROL 3 ML NEB INH SCH ×3 (13:56→20:17)
[2021-02-07 16:23] LABS: B. PARAPERTUSSIS- RESP PCR PAN NOT DETECTED; B. PERTUSSIS- RESP PCR PANEL NOT DETECTED; C. PNEUMONIAE- RESP PCR PANEL NOT DETECTED; CORONAVIRUS 229E-RESP PCR NOT DETECTED; CORONAVIRUS HKU1-RESP PCR NOT DETECTED; CORONAVIRUS NL63-RESP PCR NOT DETECTED; CORONAVIRUS OC43-RESP PCR NOT DETECTED; HUMAN METAPNEUMOVIRUS NOT DETECTED; INFLUENZA A- RESP PCR PANEL NOT DETECTED; INFLUENZA B - RESP PCR PANEL NOT DETECTED; M. PNEUMONIAE- RESP PCR PANEL NOT DETECTED; PARAINFLUENZA VIRUS 1 NOT DETECTED; PARAINFLUENZA VIRUS 2 NOT DETECTED; PARAINFLUENZA VIRUS 3 NOT DETECTED; PARAINFLUENZA VIRUS 4 NOT DETECTED; RHINOVIRUS/ENTEROVIRUS NOT DETECTED; RSV- RESP PCR PANEL NOT DETECTED; SARS-CoV-2 -RESP PCR PANEL NOT DETECTED
[2021-02-08] MEDS: SODIUM CHLORIDE FLUSH 0.9% 10 ML SYRINGE IVP SCH ×4 (00:01→08:54)
[2021-02-08] MEDS: ACETAMINOPHEN 500 MG TABLET PO SCH ×2 (00:01→05:48)
[2021-02-08 06:13] LABS: BASOPHILS % (AUTO) 0.4 %; EOSINOPHILS # (AUTO) 0.2 10^3/uL (0.0-0.7); EOSINOPHILS % (AUTO) 1.9 %; HCT - HEMATOCRIT 37.3 % (42.0-52.0); HGB - HEMOGLOBIN 12.5 g/dL (14.0-18.0); LYMPHOCYTES # (AUTO) 1.8 10^3/uL (1.5-3.5); LYMPHOCYTES % (AUTO) 16.7 %; MEAN CORPUSCULAR HGB CONC 33.5 g/dL (32.0-36.0); MEAN CORPUSCULAR VOLUME 92.6 fL (80.0-94.0); MEAN PLATELET VOLUME 9.2 fL (7.4-11.4); MONOCYTES % (AUTO) 9.1 %; NEUTROPHILS # (AUTO) 7.6 10^3/uL (1.5-6.6); PLT - PLATELET COUNT 265 10^3/uL (130-450); RED BLOOD COUNT 4.03 10^6/uL (4.70-6.10); RED CELL DISTRIBUTION WIDTH 14.8 % (12.0-15.0); WHITE BLOOD COUNT 10.7 x10^3/uL (4.8-10.8)
[2021-02-08 06:21] LABS: CALCIUM 8.6 mg/dL (8.5-10.3); CREATININE 0.6 mg/dL (0.6-1.2); POTASSIUM 4.2 mmol/L (3.5-5.0)
[2021-02-08] MEDS: IPRATROPIUM/ALBUTEROL 3 ML NEB INH SCH (07:08)
[2021-02-08] MEDS: MULTIVITAMIN TABLET PO SCH (07:36)
[2021-02-08 07:40] VITALS: BP 150/81
[2021-02-08] MEDS: polyethylene glycoL 3350 17 GM PACKET PO SCH (08:53)
[2021-02-08] MEDS: ENOXAPARIN 40 MG/0.4 ML SYRINGE SUBQ SCH (08:53)
[2021-02-08] MEDS: CELECOXIB 100 MG CAPSULE PO SCH (08:53)
[2021-02-08] MEDS: ASPIRIN EC 81 MG TABLET PO SCH (08:53)
[2021-02-08] MEDS: ethyl alcohoL 62% SWAB AMPULE NAS SCH (08:53)
[2021-02-08] MEDS: THIAMINE 100 MG TABLET PO SCH (08:54)
[2021-02-08] MEDS: TAMSULOSIN 0.4 MG CAPSULE PO SCH (08:54)
[2021-02-08] MEDS: DOCUSATE SODIUM 100 MG CAPSULE PO PRN (08:54)
--- NOTE | 2021-02-08 11:04 | Discharge Plan ---
Discharge Plan Problem Reviewed?: Yes Disposition: Home Health Service Condition: Stable Prescriptions: oxyCODONE [Roxicodone] 5 mg PO Q6HR PRN #30 tablet PRN Reason: Pain Diet: Regular Activity Restrictions: Wt Bearing as Tolerated Shower Restrictions: No Driving Restrictions: Yes (no driving for a 2 weeks) Assistance Devices: Walker Weight Bearing: Full Weight Health Concerns: You came to the hospital because you were lifting a heavy object and felt a sudden snapping pain in your left hip. It was agonizing and you came to the emergency room. We found you to have a left fracture. You had to have hip replacement. You have done well and do not need to go to a alf for kwaku ab. You can go home with home health for physical therapy rehab. The only other problems during your stay was possible alcohol withdrawal. You did very well with that. Had only minimal tremulousness on the first day. The rest of the time you did well. You were treated with specific vitamins to reduce the amount of brain damage she can possibly have from alcohol abuse. Those vitamins with thiamine and folic acid Plan of Treatment: Please keep your wound clean and dry. You can take a shower but you cannot bathe or soak in a hot tub. After the shower immediately dry the wound. Please see orthopedic surgery in 2 weeks. Please take 81 mg of aspirin twice a day to prevent blood clots in your legs. You need to do that for the next 6 weeks. The orthopedic provider has counseled you on how to position your leg with no excessive internal rotation, not to cross the left leg past midline, and avoid flexing the hip for more than 90 degrees for the next 8 weeks. You will be sent home on oxycodone for pain relief. You can take 1 oxycodone tablet with 2 ibuprofen, and 1 Tylenol for pain relief. Sometimes ibuprofen and aspirin will interact and give you a queasy stomach. If that starts to happen, stop the ibuprofen and only take aspirin and Tylenol. If your stomach continues to be queasy you can take eous-[id number] omeprazole or gwfu-tae-nykntnc Tums to help. . Care Goals: To regain complete and normal mobility of the affected leg so that you can return back to your normal lifestyle. To stop drinking, smoking, and other substance abuse Assessment: Patient states he understands care goals and will try and follow through. Follow-Up Care: Home Health - RN, Home Health - PT, Home Health - OT No Smoking: If you smoke, Please STOP! Call for help. Follow-up with: EMEKA GRIMALDO MD [Physician No Access] - Mannie Rogers MD [Provider Admit Priv/Credential] -
--- NOTE | 2021-02-08 11:17 | DISCHARGE SUMMARY ---
"Discharge Summary Admit Date: 02/04/21 Discharge Date: 02/08/21 Discharging Provider: Dora Terry MD Primary Care Provider: Ana Means MD Code Status: Attempt Resuscitation Condition at Discharge: Stable Discharge Disposition: Home Health Service - DIAGNOSES Discharge Diagnoses with Status of Each Condition: 1. Left displaced femoral neck fracture 2. COPD with exacerbation 3. Depression with anxiety 4. Abnormality of lung on chest x-ray next 5. preoperative cardiovascular examination 6. BPH with urinary obstruction 7. Polysubstance abuse including alcohol, tobacco, methamphetamines - HPI History of Present Illness: 2 weeks ago he was seen at his walk-in clinic for left hip pain. X-ray was negative[place] heavy piece of equipment/compressor. he had sudden onset of left hip pain. In the same area where he hurt 2 weeks ago. Pain was pretty abrupt and very severe. BIB EMS. In the emergency room he was 97.6. Heart rate of 104. Blood pressure 132/72. Respirations 18 and 92% on room air. As long as he kept his leg stable and he did not stand on it or move he felt fine. Other than not being able to move his leg, not much else was seen on physical exam. His white cell count is 18.8. Hemoglobin 14. BMP normal. And hip film shows a fracture of the left femur. He has a PMH of COPD and occasionally has short bursts of steroids for his exacerbation. The last time he had an exacerbation was yesterday. Over the last couple of days he has had increasing shortness of breath and wheezing. Not unusual for him. But he could not get the wheezing into control with his inhaler so he went to [facility] emergency room. He received nebulizers, a short burst of steroids, and he was sent home. Also has a history of alcohol abuse in the past. He drinks about 4-5 drinks of wine a day. Last drink was this morning. He does not recall ever going through full withdrawal. He may get a little shaky for a couple of hours but that is the worst he is ever had. He also uses methamphetamines. Last use was a few days ago. In speaking to his primary care provider, Dr. Means, he was last seen in April 2020. Medications at that time was Symbicort, ProAir, fluoxetine, bupropion and Viagra. But he tells me that he saw Dr. Means to get a skin lesion taken off his back in the last few months. He has chronic shortness of breath. That is the main thing that slows him down. No recent change in phlegm production. No hemoptysis, no fever or chills. Did have an exacerbation of wheezing yesterday as already noted. He denies chest pain, palpitations. Denies pedal edema. Orthopnea. He denies any history of heart attack, valvular heart disease or arrhythmia. Denies any problems with his kidneys. - Past Medical History Cardiovascular: reports: None Respiratory: reports: COPD, Pneumonia Neuro: reports: None Endocrine/Autoimmune: reports: None GI: reports: GERD, Hepatitis, Cirrhosis : reports: Benign prostate hypertrophy HEENT: reports: Chronic vision loss, Chronic hearing loss Psych: reports: Depression, Anxiety Musculoskeletal: reports: Chronic back pain Derm: reports: Other (A mole removed from his back this last summer) MRSA Hx?: No Other Past Medical History: alcoholism - Past Surgical History General: reports: Appendectomy Ortho: reports: Knee replacement Cardiovascular: reports: Other - CONSULTS | PROCEDURES Procedures: 1. Hip pelvis x-ray with acute displaced left femoral neck fracture. 2. Chest x-ray with diffuse increased interstitial markings that could be due to fluid overload. Interstitial lung disease or infectious inflammatory etiology could have a similar appearance. 3. Pelvis x-ray after surgery shows postoperative changes of the left hip replacement without complication. 4. Echocardiogram has left ventricular wall thickness normal. Ejection fraction 60 to 65% with no wall motion abnormalities. Right ventricle normal size and function. Both atria normal. No significant valvular heart disease. 5. Left total hip replacement with a [employer] press-fit #6 anthology femoral component with high offset, 36 mm Oxinium femoral head, +8, 56 mm 3-hole porous acetabular component and neutral polyethylene liner - HOSPITAL COURSE Hospital Course: The patient was admitted to the hospitalist service and consulted on by orthopedics. Preoperative evaluation took into account his methamphetamine abuse, alcohol abuse, and interstitial lung changes. The patient did not carry a diagnosis of COPD or previous interstitial pneumonitis. He was asymptomatic from an infectious perspective and Covid negative. Echocardiogram did not show any congestive heart failure. As such she went to the operating room and did not have any complications intraoperatively or postoperatively. He had mild acute blood loss anemia that did not require transfusion. He did very well with physical therapy, pain was controlled. He was felt to be a candidate for discharge to home with home health PT. However the patient has recently from his . They have not been living together for a month. He has been living in a van. He is discharged to his sister's house in [place]. I have asked him to please stop using methamphetamines, alcohol. Seek rehab. Services were offered to him by social work. I also explained to him that he needs to see his primary care provider in follow-up to find out why his femoral neck was so unstable that it broke lifting a heavy object. There was no trauma with the fracture. He also should get follow-up for the interstitial pneumonitis changes on chest x-ray. In the outpatient setting he might benefit from pulmonary function studies, DLCO, and a spiral CT scan of the chest. He received wound instructions from APRIL Abraham and myself. He is to keep the wound clean and dry. He can take a shower but do not soak it in a tub or hot tub. If he develops any drainage, redness or heat to the wound to notify orthopedics. He should see orthopedics in the next 2 weeks. At discharge the patient's temperature was 36.7. Heart rate 89. Blood pressure 150/81. Respirations 18. 94% on room air. He is 5 foot 10 inches tall. He is an alert oriented white male who looks stated age. Bowen and mustache. No facial asymmetry. Speech is slightly hoarse but lucid and in context. Neck is shotty adenopathy. Lungs during his stay had occasional rhonchi, occasional wheezing but were clear on the day of discharge. He had a regular rate and rhythm. The abdomen is soft and nontender. No ascites or fluid wave. Extremities are without edema and the wound was closed, healed, healing well. He is discharged to his sister's house with home health physical therapy. Prescriptions have been called into [facility] since his requested [facility] of [place] and [place] is closed today. Greater than 30 minutes was spent coordinating discharge. - ALLERGIES Allergies/Adverse Reactions: Allergies Allergy/AdvReac Type Severity Reaction Status Date / Time codeine Allergy Rash Verified 01/04/15 08:59 - MEDICATIONS Home Medications: Ambulatory Orders Medication Instructions Recorded Confirmed Albuterol Sulf [Ventolin Hfa 2 puffs PO Q4H PRN 02/05/21 02/05/21 Inhaler] Budesonide/Formoterol Fumarate 2 puffs PO BID 02/05/21 02/05/21 [Symbicort 160-4.5 Mcg Inhaler] FLUoxetine [PROzac] 40 mg PO DAILY 02/05/21 02/05/21 buPROPion HCL [Bupropion Xl] 300 mg PO DAILY 02/05/21 02/05/21 Acetaminophen [Tylenol] 1,000 mg PO Q6H tablet 02/08/21 Aspirin EC [Ecotrin] 81 mg PO BID tablet 02/08/21 Multivitamin [Theragran] 1 tab PO DAILYWM tablet 02/08/21 Thiamine [Vitamin B-1] 100 mg PO DAILY tablet 02/08/21 oxyCODONE [Roxicodone] 5 mg PO Q6HR PRN #30 tablet 02/08/21 - LABS Result Diagrams: 02/08/21 05:50 02/08/21 05:50"
== END 2021-02-08 13:48 | disposition home health service (06) | DRG 522 ==
LOC: EDUNIT# → ED 14:03 → MS2 16:28
PROVIDERS: ADMIT Specialist; ATTEND Specialist
PROC: 0SRB02Z Replacement of Left Hip Joint with Metal on Polyethylene Synthetic Substitute, Open Approach (ICD-10-PCS; principal; 2021-02-05 10:00)
DX: S72.002A Fracture of unspecified part of neck of left femur, initial encounter for closed fracture (principal); J44.1 Chronic obstructive pulmonary disease with (acute) exacerbation; N13.8 Other obstructive and reflux uropathy; D62 Acute posthemorrhagic anemia; X50.0XXA Overexertion from strenuous movement or load, initial encounter; Y99.8 Other external cause status; F10.10 Alcohol abuse, uncomplicated; F15.10 Other stimulant abuse, uncomplicated; J84.89 Other specified interstitial pulmonary diseases; K21.9 Gastro-esophageal reflux disease without esophagitis; N40.1 Benign prostatic hyperplasia with lower urinary tract symptoms; F41.8 Other specified anxiety disorders; G89.29 Other chronic pain; M54.9 Dorsalgia, unspecified; H54.7 Unspecified visual loss; H91.90 Unspecified hearing loss, unspecified ear; Z96.659 Presence of unspecified artificial knee joint; Z20.822 Contact with and (suspected) exposure to COVID-19; Z72.89 Other problems related to lifestyle; Z79.899 Other long term (current) drug therapy; Z87.891 Personal history of nicotine dependence; Z86.19 Personal history of other infectious and parasitic diseases; Z87.01 Personal history of pneumonia (recurrent); Z87.19 Personal history of other diseases of the digestive system
CPT/HCPCS: 0202U; 36415; 71045; 72170; 73502; 80048; 80053; 80306; 83690; 85025; 85610; 86850; 86900; 86901; 93005; 93306; 94640; 96374; 96375; 97110; 97162; 97165; 97530; 99284; 99285; A9270; C1713; C1776; J0131; J1170; J1650; J3370; J3411; J7120; J8499

== ENCOUNTER 2021-03-26 08:00 | Outpatient (CLI) | payer MEDICAID | END 2021-03-26 23:59 | disposition home or self-care (01) | LOC: LAB 08:00 | PROVIDERS: ATTEND Orthopaedic Surgery | DX: Z48.89 Encounter for other specified surgical aftercare (principal) | CPT/HCPCS: 87070; 87205 ==

== ENCOUNTER 2021-04-09 10:45 | Outpatient (CLI) | payer MEDICAID ==
--- NOTE | 2021-04-09 12:27 | XRAY Report ---
PROCEDURE: Hip w/Pelvis 2-3V LT INDICATIONS: LEFT HIP ARTHROPLASTY TECHNIQUE: AP pelvis with lateral view(s) of the left hip(s). COMPARISON: None. Findings: Mild lower lumbar spondylosis and facet disease. Left hip arthroplasty in expected postoperative alig nment. No evidence of hardware loosening or failure. Mild right hip joint degeneration. IMPRESSION: Expected postoperative alignment Reviewed by: Walt Mohamud MD on 04/09/2021 12:26 PM PST Approved by: Walt Mohamud MD on 04/09/2021 12:26 PM PST Station ID: [id number]
== END 2021-04-09 23:59 | disposition home or self-care (01) ==
LOC: DI.N 10:45
PROVIDERS: ATTEND Orthopaedic Surgery
DX: Z96.649 Presence of unspecified artificial hip joint (principal)

== ENCOUNTER 2021-04-09 11:27 | Outpatient (CLI) | payer MEDICAID ==
[2021-04-09 18:03] LABS: HCT - HEMATOCRIT 38.1 % (42.0-52.0); HGB - HEMOGLOBIN 12.3 g/dL (14.0-18.0); MEAN CORPUSCULAR HEMOGLOBIN 29.4 pg (27.0-31.0); MEAN CORPUSCULAR HGB CONC 32.3 g/dL (32.0-36.0); MEAN CORPUSCULAR VOLUME 90.9 fL (80.0-94.0); MEAN PLATELET VOLUME 9.2 fL (7.4-11.4); RED BLOOD COUNT 4.19 10^6/uL (4.70-6.10); RED CELL DISTRIBUTION WIDTH 13.9 % (12.0-15.0); WHITE BLOOD COUNT 12.6 x10^3/uL (4.8-10.8)
[2021-04-10 12:25] LABS: BASOPHILS % (AUTO) 0.9 %; EOSINOPHILS % (AUTO) 17.6 %; HCT - HEMATOCRIT 38.2 % (42.0-52.0); HGB - HEMOGLOBIN 12.3 g/dL (14.0-18.0); LYMPHOCYTES % (AUTO) 19.6 %; MEAN CORPUSCULAR HEMOGLOBIN 29.9 pg (27.0-31.0); MEAN CORPUSCULAR HGB CONC 32.2 g/dL (32.0-36.0); MEAN CORPUSCULAR VOLUME 92.9 fL (80.0-94.0); MEAN PLATELET VOLUME 9.6 fL (7.4-11.4); NEUTROPHILS % (AUTO) 53.1 %; PLT - PLATELET COUNT 418 10^3/uL (130-450); RED BLOOD COUNT 4.11 10^6/uL (4.70-6.10); RED CELL DISTRIBUTION WIDTH 14.1 % (12.0-15.0); WHITE BLOOD COUNT 12.9 x10^3/uL (4.8-10.8)
[2021-04-10 12:28] LABS: ABNORMAL LYMPHS % (MANUAL) 0 %
[2021-04-10 13:19] LABS: BAND NEUTROPHILS % (MANUAL) 1 %; BASOPHILS # (MANUAL) 0.1 10^3/uL (0-0.1); BASOPHILS % (MANUAL) 1 %; EOSINOPHILS # (MANUAL) 2.3 10^3/uL (0-0.7); LYMPHOCYTES # (MANUAL) 2.1 10^3/uL (1.5-3.5); LYMPHOCYTES % (MANUAL) 16 %; METAMYELOCYTES % (MANUAL) 1 %; MONOCYTES # (MANUAL) 0.5 10^3/uL (0.0-1.0); NEUTROPHILS # (MANUAL) 7.7 10^3/uL (1.5-6.6)
[2021-04-10 13:22] LABS: PLATELET ESTIMATE, MANUAL NORMAL (130-450,000) (NORMAL); PLATELET MORPHOLOGY NORMAL APPEARANCE (NORMAL); RBC MORPHOLOGY (MULTIPLE) NORMAL APPEARANCE (NORMAL); WBC MORPHOLOGY (MULTIPLE) NORMAL APPEARANCE (NORMAL)
[2021-04-10 13:23] LABS: DIFFERENTIAL COMMENT MANUAL DIFFERENTIAL
== END 2021-04-09 11:28 | disposition home or self-care (01) ==
LOC: LAB.N 11:27
PROVIDERS: ATTEND Orthopaedic Surgery
DX: Z96.649 Presence of unspecified artificial hip joint (principal)
CPT/HCPCS: 36415; 85025; 85027; 85651; 86140

== ENCOUNTER 2021-04-22 12:44 | Outpatient (CLI) | payer MEDICAID ==
[2021-04-22] MEDS ORDERED: BUFFERED LIDOCAINE 10 ML SYRINGE ONE ×2 (12:56→13:42)
[2021-04-22] MEDS ORDERED: IOTHALAMATE MEGLUMINE 50 ML VIAL ONE (12:57)
[2021-04-22] MEDS ORDERED: BUFFERED LIDOCAINE 10 ML SYRINGE IU ONE (13:58)
--- NOTE | 2021-04-22 16:36 | XRAY Report ---
PROCEDURE: Inj/Aspiration Major Joint INDICATIONS: HIP ARTHROPLASTY CONTRAST: CONTRAST: none FLUORO TIME: FLUORO TIME: 0.9 min and NUMBER IMAGES: 1 TECHNIQUE: The indications, alternatives, benefits, risks, and complications of the procedure were explained to the patient. Written informed consent was obtained and placed in the chart. The patient was placed in an appropriate position on the fluoroscopy table, and a site was chosen for percutaneous access un adina fluoroscopic guidance. Local anesthetic was administered using a 1% lidocaine solution. A hypod ermic or spinal needle was then used to access the symptomatic joint. Saline was injected into the yoseph int space and reaspirated. The needle was then withdrawn, and a bandage applied to the puncture site. FINDINGS: Joint aspiration: Left hip Aspiration: Approximately 3 to 4 cc of clear/serosanguineous fluid were obtained. Complications: None. IMPRESSION: Successful fluoroscopically guided joint injection. Reviewed by: Catie Keith MD on 04/22/2021 4:35 PM PST Approved by: Catie Keith MD on 04/22/2021 4:35 PM PST Station ID: [id number]
== END 2021-04-22 12:45 | disposition home or self-care (01) ==
LOC: DI 12:44
PROVIDERS: ATTEND Orthopaedic Surgery
DX: Z96.642 Presence of left artificial hip joint (principal)
CPT/HCPCS: 20610; 87070; 87205; 89051

== ENCOUNTER 2021-04-22 13:30 | Outpatient (CLI) | payer MEDICAID ==
[2021-04-22 14:37] LABS: CC,BF RBC 39000 /mm^3; CC,BF WBC 195 /mm^3
[2021-04-22 14:38] LABS: BF CLARITY BLOODY; BF COLOR RED; BF SOURCE SYNOVIAL
[2021-04-22 15:21] LABS: EOSINOPHILS %,BODY FLUID 9 %; LYMPHOCYTES %,BODY FLUID 9 %; MONOCYTES %,BODY FLUID 5 %; NEUTROPHILS %, BF 77 %
== END 2021-04-22 23:59 | disposition home or self-care (01) ==
LOC: LAB 13:30
PROVIDERS: ATTEND Orthopaedic Surgery
DX: Z96.642 Presence of left artificial hip joint (principal)
CPT/HCPCS: 87070; 87205; 89051

== ENCOUNTER 2022-01-13 06:52 | Emergency (ER) | payer MEDICAID ==
[2022-01-13] MEDS ORDERED: IPRATROPIUM/ALBUTEROL 3 ML NEB INH STA (06:58)
[2022-01-13 07:03] VITALS: BP 145/86
[2022-01-13] MEDS ORDERED: ALBUTEROL NEB 2.5 MG/3 ML INH STA (07:17)
[2022-01-13] MEDS ORDERED: DEXAMETHASONE 10 MG/ML VIAL IV STA (07:17)
[2022-01-13] MEDS: ALBUTEROL NEB 2.5 MG/3 ML INH STA ×2 (07:21→07:22)
[2022-01-13 07:25] LABS: BASOPHILS # (AUTO) 0.1 10^3/uL (0.0-0.1); BASOPHILS % (AUTO) 0.7 %; EOSINOPHILS # (AUTO) 1.6 10^3/uL (0.0-0.7); EOSINOPHILS % (AUTO) 15.8 %; HCT - HEMATOCRIT 45.9 % (42.0-52.0); HGB - HEMOGLOBIN 15.6 g/dL (14.0-18.0); LYMPHOCYTES # (AUTO) 2.1 10^3/uL (1.5-3.5); LYMPHOCYTES % (AUTO) 21.5 %; MEAN CORPUSCULAR HEMOGLOBIN 31.5 pg (27.0-31.0); MEAN CORPUSCULAR VOLUME 92.5 fL (80.0-94.0); MEAN PLATELET VOLUME 9.9 fL (7.4-11.4); MONOCYTES # (AUTO) 0.9 10^3/uL (0.0-1.0); MONOCYTES % (AUTO) 9.2 %; NEUTROPHILS # (AUTO) 5.2 10^3/uL (1.5-6.6); NEUTROPHILS % (AUTO) 52.6 %; PLT - PLATELET COUNT 308 10^3/uL (130-450); RED BLOOD COUNT 4.96 10^6/uL (4.70-6.10); RED CELL DISTRIBUTION WIDTH 15.5 % (12.0-15.0); WHITE BLOOD COUNT 9.8 x10^3/uL (4.8-10.8)
--- NOTE | 2022-01-13 07:26 | ED Physician Documentation ---
PD HPI DYSPNEA - Stated complaint Stated Complaint: SOA - Chief complaint Chief Complaint: Resp - History obtained from History obtained from: Patient - Additional information Additional information: The patient comes to the emergency department with chief complaint of shortness of breath that started last night. Patient has a history of COPD that seems to been worse since he had COVID a couple years ago. He has a history of smoking cigarettes throughout a large portion of his adult life but quit about 5 years ago. He states he has a nebulizer machine at home but did not use it because he "did not think it would help". He took a puff of his inhaler before coming in, but that did not help. He states that he has not had any fevers or productive cough. He does not use any oxygen at home. He states he thought that his allergies were acting up for a couple of days before the shortness of breath started. He denies any cardiac history. He is otherwise healthy. No other complaints at this time. Review of Systems Ten Systems: 10 systems reviewed and negative Constitutional: reports: Reviewed and negative Eyes: reports: Reviewed and negative Ears: reports: Reviewed and negative Nose: reports: Congestion Throat: reports: Reviewed and negative Cardiac: reports: Reviewed and negative Respiratory: reports: Dyspnea, Wheezing GI: reports: Reviewed and negative : reports: Reviewed and negative Skin: reports: Reviewed and negative Musculoskeletal: reports: Reviewed and negative Neurologic: reports: Reviewed and negative Psychiatric: reports: Reviewed and negative Endocrine: reports: Reviewed and negative Immunocompromised: reports: Reviewed and negative PD PAST MEDICAL HISTORY - Past Medical History Past Medical History: Yes Cardiovascular: None Respiratory: COPD, Pneumonia Neuro: None Endocrine/Autoimmune: None GI: GERD, Hepatitis, Cirrhosis : Benign prostate hypertrophy HEENT: Chronic vision loss, Chronic hearing loss Psych: Depression, Anxiety Musculoskeletal: Chronic back pain Derm: Other - Past Surgical History Past Surgical History: Yes General: Appendectomy Ortho: Knee replacement Cardiovascular: Other - Present Medications Home Medications: Ambulatory Orders Medication Instructions Recorded Confirmed Albuterol Sulf [Ventolin Hfa 2 puffs PO Q4H PRN 02/05/21 02/05/21 Inhaler] Budesonide/Formoterol Fumarate 2 puffs PO BID 02/05/21 02/05/21 [Symbicort 160-4.5 Mcg Inhaler] FLUoxetine [PROzac] 40 mg PO DAILY 02/05/21 02/05/21 buPROPion HCL [Bupropion Xl] 300 mg PO DAILY 02/05/21 02/05/21 Acetaminophen [Tylenol] 1,000 mg PO Q6H tablet 02/08/21 Aspirin EC [Ecotrin] 81 mg PO BID tablet 02/08/21 Multivitamin [Theragran] 1 tab PO DAILYWM tablet 02/08/21 Thiamine [Vitamin B-1] 100 mg PO DAILY tablet 02/08/21 oxyCODONE [Roxicodone] 5 mg PO Q6HR PRN #30 tablet 02/08/21 - Allergies Allergies/Adverse Reactions: Allergies Allergy/AdvReac Type Severity Reaction Status Date / Time codeine Allergy Rash Verified 01/13/22 07:03 - Social History Does the pt smoke?: No Smoking Status: Never smoker Does the pt drink ETOH?: Yes Does the pt have substance abuse?: Yes - Immunizations Immunizations are current?: Yes - POLST Patient has POLST: No PD ED PE NORMAL - Vitals Vital signs reviewed: Yes - General General: Alert and oriented X 3, Well developed/nourished, Other (Mild respiratory distress) - HEENT HEENT: Atraumatic, PERRL, EOMI, Moist mucous membranes - Neck Neck: Supple, no meningeal sign - Cardiac Cardiac: RRR, No murmur, Strong equal pulses - Respiratory Respiratory: Other (Moderate expiratory wheezes bilaterally with moderately diminished breath sounds in bilateral bases. The patient is speaking in full sentences but with labored respirations in between.) - Abdomen Abdomen: Soft, Non tender, Non distended - Derm Derm: Normal color, Warm and dry, No rash - Extremities Extremities: No deformity, No edema - Neuro Neuro: Alert and oriented X 3 - Psych Psych: Normal mood, Normal affect Results - Vitals Vitals: Vital Signs - 24 hr 01/13/22 01/13/22 01/13/22 07:00 07:11 07:25 Temperature 36.6 C Heart Rate 114 H 103 H 100 Respiratory 20 13 15 Rate Blood Pressure 145/86 H O2 Saturation 92 Oxygen O2 Source Room air - Labs Labs: Laboratory Tests 01/13/22 01/13/22 01/13/22 07:02 07:02 07:02 WBC 9.8 RBC 4.96 Hgb 15.6 Hct 45.9 MCV 92.5 MCH 31.5 H MCHC 34.0 RDW 15.5 H Plt Count 308 MPV 9.9 Neut # (Auto) 5.2 Lymph # (Auto) 2.1 [place] # (Auto) 0.9 Eos # (Auto) 1.6 H Baso # (Auto) 0.1 Absolute Nucleated RBC 0.00 Nucleated RBC % 0.0 Manual Slide Review Indicated RBC Morph Micro Appear 3+ ANISOCYTOSIS Sodium 140 Potassium 4.3 Chloride 101 Carbon Dioxide 29 Anion Gap 10.0 BUN 14 Creatinine 0.8 Estimated GFR (MDRD) 97 Glucose 91 Calcium 9.2 Total Bilirubin 0.7 AST 28 ALT 21 Alkaline Phosphatase 154 H B-Natriuretic Peptide 56 Total Protein 7.7 Albumin 3.6 Globulin 4.1 Albumin/Globulin Ratio 0.9 L Lipase 22 PD MEDICAL DECISION MAKING - ED course Complexity details: reviewed old records, reviewed results, re-evaluated patient, considered differential, d/w patient ED course: The patient was immediately treated with a DuoNeb and chest x-ray showed no pneumonia but did show hyperexpansion and somewhat of flattened diaphragms consistent with COPD history. The patient reported some mild improvement after the DuoNeb, and was speaking easily in full substances with room air oxygen saturations in the upper 90's. However, he was still quite tight and with prominent wheezes, and so was given 2 additional albuterol nebs. He was also given a dose of Decadron. After receiving the treatments, the patient suddenly was noted by nursing staff to have pulled his IV out to me walking out of the emergency department. When asked where he was going, the patient stated "I am out". He stated that he was thankful for the help and was feeling better and wanted to go. The patient walked out the door before he was even able to be asked to wait for discharge paperwork. Departure - Departure Disposition: ED [facility] Discharge Date/Time: 01/13/22 07:56
[2022-01-13 07:28] LABS: SLIDE REVIEW? Indicated
[2022-01-13 07:30] LABS: ALBUMIN 3.6 g/dL (3.2-5.5); ALBUMIN/GLOBULIN RATIO 0.9 (1.0-2.2); BILIRUBIN,TOTAL 0.7 mg/dL (0.2-1.0); CALCIUM 9.2 mg/dL (8.5-10.3); CREATININE 0.8 mg/dL (0.6-1.2); POTASSIUM 4.3 mmol/L (3.5-5.0); TOTAL PROTEIN 7.7 g/dL (6.7-8.2)
[2022-01-13 07:48] LABS: RBC MORPHOLOGY (MULTIPLE) 3+ ANISOCYTOSIS (NORMAL)
--- NOTE | 2022-01-13 09:31 | XRAY Report ---
PROCEDURE: Chest 1 View X-Ray INDICATIONS: chest pain TECHNIQUE: One view of the chest was acquired. COMPARISON: Chest x-ray 02/07/2021 FINDINGS: Surgical changes and devices: None. Lungs and pleura: No pleural effusions or pneumothorax. Lungs are clear. Mediastinum: Mediastinal contours appear normal. Heart size is normal. Bones and chest wall: No suspicious bony lesions. Overlying soft tissues appear unremarkable. IMPRESSION: No acute pulmonary process. Reviewed by: Catie Keith MD on 01/13/2022 9:29 AM PDT Approved by: Catie Keith MD on 01/13/2022 9:29 AM PDT Station ID: [id number]
== END 2022-01-13 07:56 | disposition left against medical advice (07) ==
LOC: ED 06:52
DX: J44.1 Chronic obstructive pulmonary disease with (acute) exacerbation (principal)
CPT/HCPCS: 36415; 80053; 83690; 83880; 85025; 94640; 96374; 99284